=== PATIENT | female | born 1960 | race Caucasian/White ===

== ENCOUNTER 2025-03-12 12:26 | Outpatient (AMB) | payer MEDICARE, SELFPAY ==
--- NOTE | 2025-03-12 12:52 | A.OFFVIS_ITS ---
Intake Visit Reasons: Right knee pain and giving way Intake Note: Jackeline is a 64 year old female who presents with complaints of progressively worsening right knee pain and giving way. The patient describes her pain as sharp in nature. Most of the pain is along the medial aspect of her knee. Her symptoms have gotten worse over the last 5 years. She has failed the last few months of conservative treatment which has included physical therapy, cortisone injection therapy, Tylenol, anti-inflammatory medicines and oxycodone. She states that her right knee will give out several times per day. She has fallen because of the instability. Allergies codeine [CODEINE] Allergy (Severe, Unverified 03/12/25 13:01) ITCHING hydromorphone [HYDROMORPHONE] Allergy (Severe, Unverified 03/12/25 13:01) ITCHING hydrocodone [From VICODIN] Allergy (Mild, Unverified 03/12/25 13:01) ITCHING acetaminophen [Vicodin] Allergy (Unknown, Verified 03/12/25 13:01) Anaphylaxis latex [LATEX] Allergy (Unknown, Unverified 03/12/25 13:01) SWELLING, RASH morphine [MORPHINE] Allergy (Unknown, Unverified 03/12/25 13:01) SWELLING Codeine Phosphate Allergy (Unknown, Uncoded 03/12/25 13:01) hives Latex Gloves Allergy (Unknown, Uncoded 03/12/25 13:01) Blister Medication List - Last Reconciled 03/13/25 by Pako Moreno MD atorvastatin 10 mg PO BEDTIME gabapentin 100 mg PO BEDTIME insulin asp prt-insulin aspart 100 unit/mL (70-30) (Novolog Mix 70-30FlexPen U- 100) 5 units subcut BID levothyroxine 13 mcg PO DAILY lorazepam 1 mg PO BEDTIME PRN oxycodone 5 mg PO Q8H PRN quetiapine (Seroquel) 25 mg PO BEDTIME Physical Exam Const Other: Well-nourished well-developed very friendly female awake alert and oriented x3 in no acute distress Extrem Other: Bilateral lower extremity examination shows good capillary refill, no skin lesions noted, normal sensation light touch Right knee examination shows a minimal effusion, palpable crepitus with range of motion, pain with range of motion, positive Catrachita's test, no instability Results Reviewed Results Reviewed: Standing full weight-bearing x-rays of the patient's right knee show mild diffuse joint space narrowing, no acute bony abnormalities MRI of the patient's right knee shows mild diffuse degenerative changes as well as a tear of the medial meniscus Assessment & Plan Assessment & Plan (1) Tear of medial meniscus of right knee: Code(s): S83.241A - Other tear of medial meniscus, current injury, right knee, initial encounter Category: Medical Plan Ms. Quiros presents with progressively worsening right knee pain and mechanical symptoms due to a medial meniscus tear. I had a lengthy discussion with the patient regarding the treatment options. At this point she has failed continued non operative treatments. The risks and benefits of right knee arthroscopic surgery were discussed at length with the patient. The patient wishes to proceed with surgery. She does understand that she may not get 100% relief of her symptoms depending on the severity of her degenerative changes. She will follow-up as instructed. Feel free to call me at any time should questions regarding her orthopedic management arise. Thank you very much for asking me to see this very friendly patient. I spent 20 minutes in reviewing the patient's records and imaging studies, seeing the patient and documenting in the medical record. Coding Level of Care Code New Pt Level 3 (25637) Complex EM visit Add On G2211 Diagnoses Tear of medial meniscus of right knee S83.241A
--- OUTSIDE RECORDS SUMMARY | 2025-03-12 13:51 | XMS_ITS | Clinical Summary ---
Author Organization [facility] [address] [facility] Address [address] [place] [address] Phone Care Team Providers Care Recreational Aide Name Role Phone Simon Dougherty MD Primary Care Provider [phone] Allergies Active Allergy Reactions Criticality Noted Date Comments Acetaminophen-Codeine 06/30/2012 Fentanyl Nausea And Vomiting 01/09/2019 Hydrocodone-Acetamino phen 08/30/2014 Other Reaction(s): Rash/Dermatitis Latex 09/26/2017 No reaction documented. Morphine Swelling,Wheezing 09/26/2017 Medications multivit-min/ir on/FA/vit K/lut (CENTRUM SILVER WOMEN ORAL) Take by mouth daily. Active bisacodyL (Dulcolax, bisacodyl,) 5 mg EC tablet Take 2 tabs at 6pm as directed. 05/13/2022 Active buPROPion SR (WELLBUTRIN SR) 150 mg 12 hr tablet Take 1 Tab by mouth daily. 06/08/2020 Active baclofen (LIORESAL) 10 mg tablet Take 10 mg by mouth 3 times daily. Active atorvastatin (LIPITOR) 20 mg tablet Take 20 mg by mouth daily. Active aspirin 81 mg EC tablet Take 81 mg by mouth daily. Active albuterol HFA (PROAIR HFA ; PROVENTIL HFA ; VENTOLIN HFA) 90 mcg/actuation inhaler Inhale 2 Puffs into the lungs every 4 hours as needed for Cough or Wheezing. 01/12/2019 Active fluticasone-rolando meterol (ADVAIR DISKUS) 250-50 mcg/dose diskus inhaler Inhale 1 Puff into the lungs 2 times daily. 02/05/2019 Active gabapentin (NEURONTIN) 600 mg tablet Take 600 mg by mouth 2 times daily. Active lactulose (CHRONULAC) solution Take 30 mL by mouth 2 times daily for 30 days. 05/13/2022 Active levothyroxine (SYNTHROID, LEVOTHROID) 50 mcg tablet Take 1 Tab by mouth daily. 12/18/2018 Active linaCLOtide (Linzess) 72 mcg capsule Take 1 Capsule by mouth daily. 05/11/2022 Active pantoprazole (PROTONIX) 40 mg EC tablet Take 1 Tablet by mouth daily for 180 days. 05/11/2022 Active sertraline (ZOLOFT) 100 mg tablet Take 1 Tab by mouth daily. 10/24/2018 Active Active Problems Problem Noted Date Diagnosed Date Carpal tunnel syndrome 01/09/2019 Overview (11/16/2024): S/p surgery Hypothyroidism 08/22/2018 AC (acromioclavicular) joint arthritis 8 Overview (11/16/2024): With calcific tendinitis of right shoulder. Follows with Dr. Moreno. Last X ray from 05/2018 Complete tear of right rotator cuff 06/08/2018 Labral tear of shoulder, right, initial encounte r 06/08/2018 Right shoulder injury, initial encounter 018 Anxiety and depression 09/26/2017 Overview (11/16/2024): Follows with Soheila Babb in [place] therapist. Chronic pain syndrome 09/26/2017 Overview (11/16/2024): Last surgery 11/2016Cervical fusion COPD (chronic obstructive pu lmonary disease) ([facility] V24, [facility] V28) 09/26/2017 Obesity (BMI 30-39.9) 09/26/2017 Type 2 diabetes mellitus wit h peripheral neuropathy ([facility] V24, [facility] V28) 09/26/2017 Overview (11/16/2024): S/p carpal tunnel release Asthma 11/13/2015 Colon polyp 05/26/2015 Diverticulosis 05/16/2015 Gastritis 05/16/2015 Internal hemorrhoids 05/16/2015 Hyperlipidemia 08/30/2014 Bipolar 1 disorder ([facility] V24, [facility] V28) Fatty liver 08/08/2013 Vitamin D deficiency 04/05/2013 GERD (gastroesophageal reflux disease) 3 Urge and stress incontinence 03/02/2013 Obstructive sleep apnea 02/21/2013 Ulcer of esophagus without bleeding 02/02/2013 Nephrolithiasis 12/18/2012 Restless legs syndrome 11/22/2012 Encounters Date Type Department Care Team Description 02/18/2025 12:07 AM EDT - 02/18/2025 2:24 AM EDT Emergency [facility] Emergency [address] [place] [address] Patric Mukherjee MD Chest pain, unspecified type (Primary Dx) Discharge Disposition: Home or Self Care from Last 3 Months Surgical History Surgery Date Site/Laterality Comments NECK SURGERY PROCEDURE:NECK SURGERY HAND SURGERY PROCEDURE:HAND SURGERY SHOULDER SURGERY PROCEDURE:SHOULDER SURGERY BACK SURGERY PROCEDURE:BACK SURGERY Medical History Medical History Date Comments COPD (chronic obstructive pu lmonary disease) ([facility] V24, [facility] V28) DX:COPD (chronic o bstructive pulmonary disease) ([facility]) Diabetes mellitus ([facility] V 24, [facility] V28) DX:Diabetes mellitus (HCC) Family History Medical History Relation Name Comments Clotting disorder Father Cancer Mother Relation Name Status Comments Father Mother Social History Tobacco Use Types Packs/Day Years Used Date Smoking Tobacco: Every Day Cigarettes Smokeless Tobacco: Never Alcohol Use Standard Drinks/Week Comments Not Currently 0 (1 standard drink = 0.6 oz pur e alcohol) Comments Unknown Sex and Gender Information Value Date Recorded Sex Assigned at Not on file Legal Sex Female 6:26 PM EST Gender Identity Not on file Sexual Orientation Not on file Obstetrics History Last Filed Vital Signs Vital Sign Reading Time Taken Comments Blood Pressure 121/81 02/18/2025 2:03 AM EDT Pulse 65 02/18/2025 2:03 AM EDT Temperature 36.7 ??C (98.1 ??F) 02/18/2025 12:14 AM E DT Respiratory Rate 20 02/18/2025 2:03 AM EDT Oxygen Saturation 96% 02/18/2025 2:03 AM EDT Inhaled Oxygen Concentration - - Weight 99.8 kg (220 lb) 02/18/2025 12:14 AM EDT Height 175.3 cm (5' 9 ) 02/18/2025 12:14 AM EDT Body Mass Index 32.49 02/18/2025 12:14 AM EDT Plan of Treatment Health Maintenance Due Date Last Done Comments Breast Cancer Screening 1959 Diabetes: Annual Foot Exam 1969 Diabetes: Annual Retina Eye Exam 1969 DTaP,Tdap,and Td Vaccines (1 - Tdap) 1978 Pneumococcal Vaccine: 50+ Years (1 of 2 - PCV) 1978 Pneumococcal Vaccine: Pediatrics (0 to 5 Years) and At-Risk Patients (6 to 64 Years) (1 of 2 - PCV) 1978 Cervical Cancer Screening: Pap Smear 1980 Zoster Vaccines (1 of 2) 2009 RSV Immunization Adult Patients (1 - Risk 60-74 years 1-dose series) 2019 Depression Screening 09/18/2022 Hepatitis C Screening 09/18/2022 Lung Cancer Screening (Low Dose CT) 09/18/2022 Medicare Annual Wellness Visit 09/18/2022 Osteoporosis Screening (Bone Density Screening) 09/18/2022 Social Influencers of Health Screening 09/18/2022 Diabetes: Annual Urine Albumin-Creatinine Ratio (uACR) 09/22/2022 03/08/2019 Diabetes: Blood Sugar Control Test (HGBA1C) 09/22/2022 06/20/2019 Colorectal Cancer Screening: Colonoscopy 03/29/2024 09/28/2023, 06/01/2022 Falls Risk Assessment 2024 COVID-19 Vaccine ( season) 2024 Cholesterol Screening (Lipid Panel) 06/20/2024 06/20/2019 Influenza Vaccine (Season Ended) 2025 09/17/2022, 07/09/2019 Diabetes: Annual GFR (Glomerular Filtration Rate) 02/18/2026 02/18/2025, 04/12/2024, 04/12/2024, Additional history exists HIB Vaccines Aged Out No longer eligi ble based on patient's age to complete this topic HPV Vaccines Aged Out No longer eligi ble based on patient's age to complete this topic Hepatitis A Vaccines Aged Out No long er eligible based on patient's age to complete this topic Hepatitis B Vaccines Aged Out No long er eligible based on patient's age to complete this topic IPV Vaccines Aged Out No longer eligi ble based on patient's age to complete this topic MMR Vaccines Aged Out No longer eligi ble based on patient's age to complete this topic Meningococcal ACWY Vaccine Aged Out N o longer eligible based on patient's age to complete this topic Meningococcal B Vaccine Aged Out No l onger eligible based on patient's age to complete this topic RSV Immunization Patients Under 20 months Aged Out No longer eligible based on patient's age to complete this topic Varicella Vaccines Aged Out No longer eligible based on patient's age to complete this topic Procedures Procedure Name Priority Date/Time Associated Diagnosis Comments RHYTHM ECG, REPORT Routine 02/18/2025 1: 21 AM EDT TROPONIN I HIGH SENSITIVITY STAT 02/18/2025 1:21 AM EDT ECG 12-LEAD STAT 02/18/2025 1:15 AM EDT XR CHEST 1 VIEW STAT 02/18/2025 12:29 AM EDT RHYTHM ECG, REPORT Routine 02/18/2025 12 :19 AM EDT CBC WITH AUTO DIFFERENTIAL STAT 02/18/2025 12:19 AM EDT CBC AND DIFFERENTIAL STAT 02/18/2025 12:19 AM EDT D-DIMER STAT 02/18/2025 12:19 AM EDT TROPONIN I HIGH SENSITIVITY STAT 02/18/2025 12:19 AM EDT COMPREHENSIVE METABOLIC PANEL STAT 02/18/2025 12:19 AM EDT ECG 12-LEAD STAT 02/18/2025 12:09 AM EDT EXTERNAL COLONOSCOPY REPORT 09/28/2023 HEMOGLOBIN A1C Routine 06/20/2019 LIPID PANEL Routine 06/20/2019 URINE ALBUMIN CREATININE RATIO Routine 03/08/2019 from Last 3 Months or Most Recently Relevant to Health Maintenance Results * RHYTHM ECG, REPORT (02/18/2025 1:21 AM EDT) Only the most recent of2 resultswithin the time period is included. Patric Hoang MD - 02/18/2025 1:21 AM EDT Patric Mukherjee MD ? 02/18/2025 ??2:28 AM ECG Rhythm Interpretation and Report Date/Time: 02/18/2025 1:21 AM Performed by: Patric Mukherjee MD Authorized by: Patric Mukherjee MD ?? ECG interpreted by ED Physician in the absence of a electric switch repairer: yes ?? Previous ECG: ??Previous ECG: ??Compared to current ??Similarity: ??No change Interpretation: ??Interpretation: normal ?Details: ??NSR with a rate of 91 bpm. Normal AK, QRS, QTc, and axis. No acute ischemic changes. us Patric Mukherjee MD ECG ORDERABLES Final Result * Troponin I high sensitivity (02/18/2025 1:21 AM EDT) Only the most recent of2 resultswithin the time period is included. [facility] High Sensitivity Troponin I 2 0 - 14 ng/L LAB CHEMISTRY METHOD 02/18/2025 1:54 AM EDT [facility] Blood Venous blood specimen / Unknown Venipuncture / Unknown 02/18/2025 1:21 AM EDT 02/18/2025 1:23 AM EDT [facility] LAB - 02/18/2025 1:54 AM EDT HSTnI results stratify to HIGH RISK category if any value >100 ng/L or delta at 1 hour is greater than or equal to 15 ng/L (male and female). Note: Delta values are not applicable if symptoms began more than 12 hours pre-arrival. Risk stratification should include the calculation of the HEART score. Testing performed using [employer] Access AccuTnI+3 Assay. Patric Mukherjee MD LAB BLOOD ORDERABLES Final Res ult Performing Organization Address [facility] Co de Phone Number [facility] ([facility]) [facility] [address] [place] [address], [place] [phone] * 12-Lead ECG (02/18/2025 1:15 AM EDT) Only the most recent of2 resultswithin the time period is included. Ventricular Rate ECG 66 BPM GEMUSE Atrial Rate 66 BPM GEMUSE P-R Interval 170 ms GEMUSE QRS Duration 114 ms GEMUSE Q-T Interval 418 ms GEMUSE QTc 438 ms GEMUSE P Wave [place] 13 degrees GEMUSE R [place] -3 degrees GEMUSE T [place] -7 degrees GEMUSE ECG Interpretation Normal sinus rhythm Incomplete right bundle branch block Nonspecific T wave abnormality Abnormal ECG When compared with ECG of 18-FEB-2025 00:09, (Unconfirmed) No significant change was found Confirmed by Luis F Ayon ([id number]) on 02/18/2025 2:02:53 PM GEMUSE 02/18/2025 1:15 AM EDT 02/18/2025 2:02 PM EDT Patric Mukherjee MD ECG ORDERABLES Final Result Performing Organization Address [facility] de Phone Number GEMUSE * XR Chest 1 View (02/18/2025 12:29 AM EDT) Anatomical Region Laterality Modality Body Radiographic Yolande ging 02/18/2025 12:4 5 AM EDT Impressions 02/18/2025 12:47 AM EDT FINDINGS/IMPRESSION: Thoracic inlet is excluded. Lungs are clear. Heart is normal in size. Report reviewed and signed by : Dr. Chacho Gunderson on 02/18/2025 12:47 AM. Workstation Name - [id number] -------- FINAL REPORT -------- Dictated By: Chacho Gunderson Dictated Date: 02/18/2025 00:45 ET Assigned Physician: Chcaho Gunderson Reviewed and Electronically Signed By: Chacho Gunderson Signed Date: 02/18/2025 00:47 ET Workstation ID: [id number] Transcribed By: Self Edit Transcribed Date: 02/18/2025 00:45 ET Narrative 02/18/2025 12:47 AM EDT XR CHEST 1 VIEW HISTORY:64 years Female ??chest pain COMPARISON:None Procedure Note Chacho Gunderson MD - 02/18/2025 XR CHEST 1 VIEW HISTORY:64 years Female chest pain COMPARISON:None IMPRESSION: FINDINGS/IMPRESSION: Thoracic inlet is excluded. Lungs are clear. Heart is normal in size. Report reviewed and signed by : Dr. Chacho Gunderson on 02/18/2025 12:47 AM.Workstation Name - [id number] -------- FINAL REPORT -------- Dictated By: Chacho Gunderson Dictated Date: 02/18/2025 00:45 ET Assigned Physician: Chacho Gunderson Reviewed and Electronically Signed By: Chacho Gunderson Signed Date: 02/18/2025 00:47 ET Workstation ID: [id number] Transcribed By: Self Edit Transcribed Date: 02/18/2025 00:45 ET us Patric Mukherjee MD IMG XR PROCEDURES Final Result * (ABNORMAL) CBC auto differential (02/18/2025 12:19 AM EDT) WBC 8.8 4.0 - 10.5 K/mcL LAB HEMETOLOGY METHOD 02/18/2025 12:25 AM EDT [facility] RBC 4.61 4.20 - 5.40 M/mcL LAB HEMETOLOGY METHOD 02/18/2025 12:25 AM EDT [facility] Hemoglobin 14.2 12.5 - 16.0 g/dL LAB HEMETOLOGY METHOD 02/18/2025 12:25 AM EDT [facility] Hematocrit 42.2 37.0 - 47.0 % LAB HEMETOLOGY METHOD 02/18/2025 12:25 AM [facility] MCV 91.5 78.0 - 100.0 FL LAB HEMETOLOGY METHOD 02/18/2025 12:25 AM [facility] MCH 30.8 25.0 - 33.0 pcg LAB HEMETOLOGY METHOD 02/18/2025 12:25 AM [facility] MCHC 33.6 32.0 - 36.0 g/dL LAB HEMETOLOGY METHOD 02/18/2025 12:25 AM [facility] RDW 11.7(L) 12.1 - 16.2 % LAB HEMETOLOGY METHOD 02/18/2025 12:25 AM [facility] Platelets 197 150 - 450 K/mcL LAB HEMETOLOGY METHOD 02/18/2025 12:25 AM [facility] MPV 10.0 7.4 - 11.4 FL LAB HEMETOLOGY METHOD 02/18/2025 12:25 AM [facility] Neutrophils Relative 48.5 44.0 - 74.0 % LAB HEMETOLOGY METHOD 02/18/2025 12:25 AM [facility] Lymphocytes Relative 44.1 20.0 - 48.0 % LAB HEMETOLOGY METHOD 02/18/2025 12:25 AM [facility] Monocytes Relative 7.1 2.0 - 12.0 % LAB HEMETOLOGY METHOD 02/18/2025 12:25 AM [facility] Eosinophils Relative 0.0 0.0 - 6.0 % LAB HEMETOLOGY METHOD 02/18/2025 12:25 AM [facility] Basophils Relative 0.1 0.0 - 2.0 % LAB HEMETOLOGY METHOD 02/18/2025 12:25 AM EDT [facility] Neutrophils Absolute 4.26 1.80 - 7.80 K/[facility] LAB HEMETOLOGY METHOD 02/18/2025 12:25 AM EDT [facility] Lymphocytes Absolute 3.87(H) 1.00 - 3.20 K/mcL LAB HEMETOLOGY METHOD 02/18/2025 12:25 AM EDT [facility] Monocytes Absolute 0.62 0.00 - 0.80 K/[facility] LAB HEMETOLOGY METHOD 02/18/2025 12:25 AM EDT [facility] Eosinophils Absolute <0.03 0.00 - 0.50 K/mcL LAB HEMETOLOGY METHOD 02/18/2025 12:25 AM EDT [facility] Basophils Absolute <0.03 0.00 - 0.20 K/mcL LAB HEMETOLOGY METHOD 02/18/2025 12:25 AM EDT [facility] Blood Venous blood specimen / Unknown Venipuncture / Unknown 02/18/2025 12:19 AM EDT 02/18/2025 12:23 AM EDT us Patric Mukherjee MD LAB BLOOD ORDERABLES Final Res ult [facility] [address] [place] [address], * D-Dimer (Quantitative) (02/18/2025 12:19 AM EDT) D-Dimer, Quant (D-DU) 186 <231 ng/mL DDU LAB COAGULATION METHOD 02/18/2025 12:35 AM EDT [facility] Blood Venous blood specimen / Unknown Venipuncture / Unknown 02/18/2025 12:19 AM EDT 02/18/2025 12:23 AM EDT Narrative [facility] - 02/18/2025 12:35 AM EDT This assay has been approved by the Food and Drug Administration (FDA) for use in excluding low and moderate risk patients suspected of venous thromboembolism, including deep vein thrombosis (DVT) and pulmonary embolism (PE) when used in conjunction with a clinical Pre test Probability model such as Wells, et al. ??The D Dimer result should not be used alone to rule in DVT and or PE. us Patric Mukherjee MD LAB BLOOD ORDERABLES Final Res ult [facility] [address] [place] [address], [place] [phone] * (ABNORMAL) Comprehensive Metabolic Panel (CMP) (02/18/2025 12:19 AM EDT) Sodium 139 135 - 145 mmol/L LAB CHEMISTRY METHOD 02/18/2025 12:47 AM [facility] Potassium 3.9 3.5 - 5.1 mmol/L LAB CHEMISTRY METHOD 02/18/2025 12:47 AM [facility] Chloride 102 98 - 107 mmol/L LAB CHEMISTRY METHOD 02/18/2025 12:47 AM [facility] CO2 31 24 - 32 mmol/L LAB CHEMISTRY METHOD 02/18/2025 12:47 AM [facility] Anion Gap 6 5 - 14 LAB CHEMISTRY METHOD 02/18/2025 12:47 AM [facility] Glucose 126 70 - 199 mg/dL LAB CHEMISTRY METHOD 02/18/2025 12:47 AM [facility] BUN 14 7 - 17 mg/dL LAB CHEMISTRY METHOD 02/18/2025 12:47 AM [facility] Creatinine 0.65 0.50 - 1.00 mg/dL LAB CHEMISTRY METHOD 02/18/2025 12:47 AM [facility] eGFR 98 >=60 mL/min/1. 73m2 LAB CHEMISTRY METHOD 02/18/2025 12:47 AM [facility] Comment:Calculation based on the Chronic Kidney Disease Epidemiology Collaboration (CKD-EPI) equation refit without adjustment for race. BUN/Creatinine Ratio 21.5(H) 12.0 - 20.0 LAB CHEMISTRY METHOD 02/18/2025 12:47 AM [facility] Calcium 9.5 8.4 - 10.2 mg/dL LAB CHEMISTRY METHOD 02/18/2025 12:47 AM [facility] AST (SGOT) 27 5 - 40 unit/L LAB CHEMISTRY METHOD 02/18/2025 12:47 AM [facility] ALT (SGPT) 27 7 - 52 unit/L LAB CHEMISTRY METHOD 02/18/2025 12:47 AM [facility] Alkaline Phosphatase 93 34 - 104 unit/L LAB CHEMISTRY METHOD 02/18/2025 12:47 AM [facility] Total Protein 7.0 6.4 - 8.5 g/dL LAB CHEMISTRY METHOD 02/18/2025 12:47 AM [facility] Albumin 4.2 3.5 - 5.0 g/dL LAB CHEMISTRY METHOD 02/18/2025 12:47 AM [facility] Total Bilirubin 1.3(H) 0.3 - 1.0 mg/dL LAB CHEMISTRY METHOD 02/18/2025 12:47 AM [facility] Blood Venous blood specimen / Unknown Venipuncture / Unknown 02/18/2025 12:19 AM EDT 02/18/2025 12:23 AM EDT us Patric Mukherjee MD LAB BLOOD ORDERABLES Final Res ult [facility] ([facility]) [facility] [address] [place] [address], [place] [phone] * External Colonoscopy Report (09/28/2023) Anatomical Region Laterality Modality Endoscopy Provider Deposit Onbase GI~PROCEDURE ORDERABLES Final Result * (ABNORMAL) Hemoglobin A1c (06/20/2019) Hemoglobin A1C 6.6(A) <=6.5 % Blood Venous blood specimen / Unknown Historical Provider LAB BLOOD ORDERABLES Bridgette l Result * (ABNORMAL) Lipid panel (06/20/2019) LDL/HDL Ratio 6(A) 0 - 4 Triglycerides 331(A) 0 - 150 mg/dL Cholesterol 218(A) 0 - 200 mg/dL HDL 34(A) >=40 mg/dL LDL Cholesterol 118(A) 0 - 100 mg/dL Blood Venous blood specimen / Unknown Historical Provider LAB BLOOD ORDERABLES Bridgette l Result * HM Urine Albumin Creatinine Ratio (03/08/2019) HM Urine Albumin Creatinine Ratio abstracted Historical Provider HEALTH MAINTENANCE Final Result from Last 3 Months or Most Recently Relevant to Health Maintenance Insurance [employer] [place] MEDICARE ADVANTAGE Care Teams Recreational Aide Relationship Specialty Start Date End Date Simon Dougherty MD [address] [place] [id number] PCP - General 08/26/23
== END 2025-03-12 13:18 | disposition home or self-care (01) ==
LOC: HO.HOS 12:27
PROVIDERS: Visit Provider Orthopaedic Surgery
DX: S83.241A Other tear of medial meniscus, current injury, right knee, initial encounter (principal)
CPT/HCPCS: 99204; G2211

== ENCOUNTER → 2025-03-12 12:26 | Outpatient (BNVA) | payer MEDICARE, SELFPAY | PROVIDERS: Visit Provider Orthopaedic Surgery | DX: S83.241D Other tear of medial meniscus, current injury, right knee, subsequent encounter (principal) | CPT/HCPCS: 99202 ==

== ENCOUNTER 2025-04-15 08:09 | Day surgery (SDC) | payer MEDICARE, SELFPAY ==
--- OUTSIDE RECORDS SUMMARY | 2025-03-15 13:09 | XMS_ITS | Clinical Summary ---
Author Organization [facility] [address] [facility] Address [address] [place] [address] Phone Care Team Providers Care Electrochemist Name Role Phone Simon Dougherty MD Primary Care Provider [phone] Allergies Active Allergy Reactions Criticality Noted Date [...] Overview (11/16/2024): Follows with Soheila Babb in [place] therapist. Chronic pain syndrome 09/26/2017 Overview (11/16/2024): Last surgery 11/2016Cervical fusion COPD (chronic obstructive pu lmonary disease) ([facility] V24, [facility] V28) 09/26/2017 Obesity (BMI 30-39.9) 09/26/2017 Type 2 diabetes mellitus wit h peripheral neuropathy ([facility] V24, [facility] V28) 09/26/2017 Overview (11/16/2024): S/p carpal tunnel release Asthma 11/13/2015 Colon polyp 05/26/2015 Diverticulosis 05/16/2015 Gastritis 05/16/2015 Internal hemorrhoids 05/16/2015 Hyperlipidemia 08/30/2014 Bipolar 1 disorder ([facility] V24, [facility] V28) Fatty liver 08/08/2013 Vitamin D deficiency 04/05/2013 GERD (gastroesophageal reflux disease) 3 Urge and stress incontinence 03/02/2013 Obstructive sleep apnea 02/21/2013 Ulcer of esophagus without bleeding 02/02/2013 Nephrolithiasis 12/18/2012 Restless legs syndrome 11/22/2012 Encounters Date Type Department Care Team Description 02/18/2025 12:07 AM EDT - 02/18/2025 2:24 AM EDT Emergency [facility] Emergency [address] [place] [address] Patric Mukherjee MD Chest pain, unspecified type (Primary Dx) Discharge Disposition: Home or Self Care from Last 3 Months Surgical History Surgery Date Site/Laterality Comments NECK SURGERY PROCEDURE:NECK SURGERY HAND SURGERY PROCEDURE:HAND SURGERY SHOULDER SURGERY PROCEDURE:SHOULDER SURGERY BACK SURGERY PROCEDURE:BACK SURGERY Medical History Medical History Date Comments COPD (chronic obstructive pu lmonary disease) ([facility] V24, [facility] V28) DX:COPD (chronic o bstructive pulmonary disease) ([facility]) Diabetes mellitus ([facility] V 24, [facility] V28) DX:Diabetes mellitus (HCC) Family History Medical [...] ED Physician in the absence of a technician helper instrument: yes ?? Previous ECG: ??Previous ECG: ??Compared to current ??Similarity: ??No change Interpretation: ??Interpretation: normal ?Details: ??NSR with a rate of 91 bpm. Normal IA, QRS, QTc, and axis. No acute ischemic changes. us Patric Mukherjee MD ECG ORDERABLES Final Result * Troponin I high sensitivity (02/18/2025 1:21 AM EDT) Only the most recent of2 resultswithin the time period is included. [facility] High Sensitivity Troponin I 2 0 - 14 ng/L LAB CHEMISTRY METHOD 02/18/2025 1:54 AM EDT [facility] Blood Venous blood specimen / Unknown Venipuncture / Unknown 02/18/2025 1:21 AM EDT 02/18/2025 1:23 AM EDT [facility] - 02/18/2025 1:54 AM EDT HSTnI results stratify to HIGH RISK category if any value >100 ng/L or delta at 1 hour is greater than or equal to 15 ng/L (male and female). Note: Delta values are not applicable if symptoms began more than 12 hours pre-arrival. Risk stratification should include the calculation of the HEART score. Testing performed using [employer] AccuTnI+3 Assay. Patric Mukherjee MD LAB BLOOD ORDERABLES Final Res ult Performing Organization Address [facility] Co de Phone Number [facility] ([facility]) [facility] [address] [place] [address], [place] [phone] * 12-Lead ECG (02/18/2025 1:15 AM EDT) Only the most recent of2 resultswithin the time period is included. Ventricular Rate ECG 66 BPM GEMUSE Atrial Rate 66 BPM GEMUSE P-R Interval 170 ms GEMUSE QRS Duration 114 ms GEMUSE Q-T Interval 418 ms GEMUSE QTc 438 ms GEMUSE P Wave [place] 13 degrees GEMUSE R [place] -3 degrees GEMUSE T [place] -7 degrees GEMUSE ECG Interpretation Normal sinus rhythm Incomplete right bundle branch block Nonspecific T wave abnormality Abnormal ECG When compared with ECG of 18-FEB-2025 00:09, (Unconfirmed) No significant change was found Confirmed by Luis F Ayon ([id number]) on 02/18/2025 2:02:53 PM GEMUSE 02/18/2025 1:15 AM EDT 02/18/2025 2:02 PM EDT Patric Mukherjee MD ECG ORDERABLES Final Result Performing Organization Address [facility] de Phone Number GEMUSE * XR Chest 1 View (02/18/2025 12:29 AM EDT) Anatomical Region Laterality Modality Body Radiographic Yolande ging 02/18/2025 12:4 5 AM EDT Impressions 02/18/2025 12:47 AM EDT FINDINGS/IMPRESSION: Thoracic inlet is excluded. Lungs are clear. Heart is normal in size. Report reviewed and signed by : Dr. Chacho Gunderson on 02/18/2025 12:47 AM. Workstation Name - [id number] -------- FINAL REPORT -------- Dictated By: Chacho Gunderson Dictated Date: 02/18/2025 00:45 ET Assigned Physician: Chacho Gunderson Reviewed and Electronically Signed By: Chacho Gunderson Signed Date: 02/18/2025 00:47 ET Workstation ID: [id number] Transcribed By: Self Edit Transcribed Date: 02/18/2025 [...] Gunderson on 02/18/2025 12:47 AM.Workstation Name - [id number] -------- FINAL REPORT -------- Dictated By: Chacho Gunderson Dictated Date: 02/18/2025 00:45 ET Assigned Physician: Chacho Gunderson Reviewed and Electronically Signed By: Chacho Gunderson Signed Date: 02/18/2025 00:47 ET Workstation ID: [id number] Transcribed By: Self Edit Transcribed Date: 02/18/2025 00:45 ET us Patric Mukherjee MD IMG XR PROCEDURES Final Result * (ABNORMAL) CBC auto differential (02/18/2025 12:19 AM EDT) WBC 8.8 4.0 - 10.5 K/mcL LAB HEMETOLOGY METHOD 02/18/2025 12:25 AM EDT [facility] RBC 4.61 4.20 - 5.40 M/mcL LAB HEMETOLOGY METHOD 02/18/2025 12:25 AM EDT [facility] Hemoglobin 14.2 12.5 - 16.0 g/dL LAB HEMETOLOGY METHOD 02/18/2025 12:25 AM EDT [facility] Hematocrit 42.2 37.0 - 47.0 % LAB HEMETOLOGY METHOD 02/18/2025 12:25 AM [facility] MCV 91.5 78.0 - 100.0 FL LAB HEMETOLOGY METHOD 02/18/2025 12:25 AM [facility] MCH 30.8 25.0 - 33.0 pcg LAB HEMETOLOGY METHOD 02/18/2025 12:25 AM [facility] MCHC 33.6 32.0 - 36.0 g/dL LAB HEMETOLOGY METHOD 02/18/2025 12:25 AM [facility] RDW 11.7(L) 12.1 - 16.2 % LAB HEMETOLOGY METHOD 02/18/2025 12:25 AM [facility] Platelets 197 150 - 450 K/mcL LAB HEMETOLOGY METHOD 02/18/2025 12:25 AM [facility] MPV 10.0 7.4 - 11.4 FL LAB HEMETOLOGY METHOD 02/18/2025 12:25 AM [facility] Neutrophils Relative 48.5 44.0 - 74.0 % LAB HEMETOLOGY METHOD 02/18/2025 12:25 AM [facility] Lymphocytes Relative 44.1 20.0 - 48.0 % LAB HEMETOLOGY METHOD 02/18/2025 12:25 AM [facility] Monocytes Relative 7.1 2.0 - 12.0 % LAB HEMETOLOGY METHOD 02/18/2025 12:25 AM [facility] Eosinophils Relative 0.0 0.0 - 6.0 % LAB HEMETOLOGY METHOD 02/18/2025 12:25 AM [facility] Basophils Relative 0.1 0.0 - 2.0 % LAB HEMETOLOGY METHOD 02/18/2025 12:25 AM EDT [facility] Neutrophils Absolute 4.26 1.80 - 7.80 K/[facility] LAB HEMETOLOGY METHOD 02/18/2025 12:25 AM EDT [facility] Lymphocytes Absolute 3.87(H) 1.00 - 3.20 K/mcL LAB HEMETOLOGY METHOD 02/18/2025 12:25 AM EDT [facility] Monocytes Absolute 0.62 0.00 - 0.80 K/[facility] LAB HEMETOLOGY METHOD 02/18/2025 12:25 AM EDT [facility] Eosinophils Absolute <0.03 0.00 - 0.50 K/mcL LAB HEMETOLOGY METHOD 02/18/2025 12:25 AM EDT [facility] Basophils Absolute <0.03 0.00 - 0.20 K/mcL LAB HEMETOLOGY METHOD 02/18/2025 12:25 AM EDT [facility] Blood Venous blood specimen / Unknown Venipuncture / Unknown 02/18/2025 12:19 AM EDT 02/18/2025 12:23 AM EDT us Patric Mukherjee MD LAB BLOOD ORDERABLES Final Res ult [facility] [address] [place] [address], * D-Dimer (Quantitative) (02/18/2025 12:19 AM EDT) D-Dimer, Quant (D-DU) 186 <231 ng/mL DDU LAB COAGULATION METHOD 02/18/2025 12:35 AM EDT [facility] Blood Venous blood specimen / Unknown Venipuncture / Unknown 02/18/2025 12:19 AM EDT 02/18/2025 12:23 AM EDT Narrative [facility] - 02/18/2025 12:35 AM [...] MD LAB BLOOD ORDERABLES Final Res ult [facility] [address] [place] [address], [place] [phone] * (ABNORMAL) Comprehensive Metabolic Panel (CMP) (02/18/2025 12:19 AM EDT) Sodium 139 135 - 145 mmol/L LAB CHEMISTRY METHOD 02/18/2025 12:47 AM [facility] Potassium 3.9 3.5 - 5.1 mmol/L LAB CHEMISTRY METHOD 02/18/2025 12:47 AM [facility] Chloride 102 98 - 107 mmol/L LAB CHEMISTRY METHOD 02/18/2025 12:47 AM [facility] CO2 31 24 - 32 mmol/L LAB CHEMISTRY METHOD 02/18/2025 12:47 AM [facility] Anion Gap 6 5 - 14 LAB CHEMISTRY METHOD 02/18/2025 12:47 AM [facility] Glucose 126 70 - 199 mg/dL LAB CHEMISTRY METHOD 02/18/2025 12:47 AM [facility] BUN 14 7 - 17 mg/dL LAB CHEMISTRY METHOD 02/18/2025 12:47 AM [facility] Creatinine 0.65 0.50 - 1.00 mg/dL LAB CHEMISTRY METHOD 02/18/2025 12:47 AM [facility] eGFR 98 >=60 mL/min/1. 73m2 LAB CHEMISTRY METHOD 02/18/2025 12:47 AM [facility] Comment:Calculation based on the Chronic Kidney Disease Epidemiology Collaboration (CKD-EPI) equation refit without adjustment for race. BUN/Creatinine Ratio 21.5(H) 12.0 - 20.0 LAB CHEMISTRY METHOD 02/18/2025 12:47 AM [facility] Calcium 9.5 8.4 - 10.2 mg/dL LAB CHEMISTRY METHOD 02/18/2025 12:47 AM [facility] AST (SGOT) 27 5 - 40 unit/L LAB CHEMISTRY METHOD 02/18/2025 12:47 AM [facility] ALT (SGPT) 27 7 - 52 unit/L LAB CHEMISTRY METHOD 02/18/2025 12:47 AM [facility] Alkaline Phosphatase 93 34 - 104 unit/L LAB CHEMISTRY METHOD 02/18/2025 12:47 AM [facility] Total Protein 7.0 6.4 - 8.5 g/dL LAB CHEMISTRY METHOD 02/18/2025 12:47 AM [facility] Albumin 4.2 3.5 - 5.0 g/dL LAB CHEMISTRY METHOD 02/18/2025 12:47 AM [facility] Total Bilirubin 1.3(H) 0.3 - 1.0 mg/dL LAB CHEMISTRY METHOD 02/18/2025 12:47 AM [facility] Blood Venous blood specimen / Unknown Venipuncture / Unknown 02/18/2025 12:19 AM EDT 02/18/2025 12:23 AM EDT us Patric Mukherjee MD LAB BLOOD ORDERABLES Final Res ult [facility] ([facility]) [facility] [address] [place] [address], [place] [phone] * External Colonoscopy Report (09/28/2023) Anatomical Region Laterality Modality Endoscopy Provider [place] On[facility] GI~PROCEDURE ORDERABLES Final Result * (ABNORMAL) [...] CROSS - [place] MEDIC[place] Care Teams Electrochemist Relationship Specialty Start Date End Date Simon Dougherty MD [address] [place] [id number] PCP - General 08/26/23
[2025-04-02 13:07] VITALS: BP 124/69; PULSE 90; RESP 20; O2SAT 97; BMI 34.2
[2025-04-15] VITALS (9 sets, daily range): BP systolic 112–134; BP diastolic 58–80; PULSE 56–70; RESP 12–20; TEMP 36.1–36.5; O2SAT 93–97; BMI 34.3
[2025-04-15] MEDS: Lactated Ringers 1,000 ML 100 ML IVCONT (09:19)
--- NOTE | 2025-04-15 10:27 | HO.ANESPROP2 ---
Documented by User: Verónica Ling NP 04/02/25 13:36 HPI - Anesthesia Eval Consult details Narrative: 64yo F for Right Knee Arthroscopy with partial medial meniscectomy, 04/15/25 No recent illness No CP with some walking, gardening. Mild BEAUCHAMP with activity - able to ascend 1 flight of stairs without BEAUCHAMP. DM: FBS ~ 150-160, A1C 7.9% GERD: controlled with ppi COPD: Using albuerol/advair prn 1-2 x per week - educated to use scheduled as rx'd leading up to surgery. Quit smoking 01/2025, congratulated [facility] Active Problems Active Problems: All Active Problems Tear of medial meniscus of right knee (Acute) Past Medical History Medical History (Updated 04/02/25 @ 13:07 by Hoda Collins RN) Arthritis COPD (chronic obstructive pulmonary disease) HTN (hypertension) Tobacco use disorder Pulmonary nodule GERD (gastroesophageal reflux disease) Anxiety Depression Elevated cholesterol Diabetes Hypothyroid Family History Family history of problems with anesthesia: No Surgical History Surgical History (Updated 04/15/25 @ 08:52 by Aliya Franco RN) H/O section Hx of appendectomy History of reverse total replacement of right shoulder joint Hx of cholecystectomy Hx of hand surgery History of back surgery Hx of reduction mammoplasty H/O colonoscopy History of Problems with Anesthesia: No Social History Social History Are you a primary child care education coordinator to a significant other at home: No Do you presently have visiting nurse or other home services: No Comment: advised of trip hazard Patient Tobacco Use Status: Former Tobacco user Tobacco use type: Cigarette Years Smoked: 45 Smoked in Last 30 Days: No Use of substances other than those prescribed or required for medical reasons: Yes Substance Use Type Other:: advised to refrain 3-5 days pre-op Substance Use Frequency: Occasionally Have you been hit, kicked, punched, or otherwise hurt by someone within the past year? If so, by whom?: No Spiritual Healthcare Practices: no Jainism Healthcare Practices: no Cultural Healthcare Practices: no Are you DNR?: No Advance Directives: No (states spouse is HCP) Advance Directives Information Provided: Yes (as above noted) Advance Directives on File: No FDLMP: n/a Poor oral hygiene: No (wears upper denture nereyda, not able to wear lower) Meds Allergies Allergy/AdvReac Type Severity Reaction Status Date / Time codeine (CODEINE) Allergy Severe ITCHING Verified 04/01/25 09:13 hydromorphone (HYDROMORPHONE) Allergy Severe ITCHING Verified 04/01/25 09:13 azithromycin Allergy Intermediate Rash Verified 04/01/25 15:19 latex (LATEX) Allergy Intermediate SWELLING, Verified 04/01/25 09:13 RASH morphine (MORPHINE) Allergy Intermediate SWELLING Verified 04/01/25 09:13 hydrocodone (From VICODIN) Allergy Mild ITCHING Verified 04/01/25 09:13 Home Medications ?Medication ?Instructions ?Recorded ?Confirmed ?Last Taken ?Type atorvastatin 10 mg tablet 20 mg PO DAILY 03/12/25 04/02/25 Unknown History oxycodone 5 mg capsule 5 mg PO QPM 03/12/25 04/02/25 Unknown History quetiapine 25 mg tablet (Seroquel) 50 mg PO TID 03/12/25 04/01/25 Unknown History albuterol sulfate 90 mcg/actuation 2 puff inhalation QID PRN 04/01/25 04/01/25 Unknown History aerosol inhaler Shortness Of Breath Or Wheezing aspirin 81 mg tablet,delayed 81 mg PO DAILY 04/01/25 04/01/25 Unknown History release fluticasone 250 mcg-salmeterol 50 1 inh inhalation BID 04/01/25 04/01/25 04/15/25 05:30 History mcg/dose blistr powdr for inhalation (Advair Diskus) gabapentin 600 mg tablet 600 mg PO TID 04/01/25 04/02/25 04/15/25 05:30 History insulin aspart U-100 100 unit/mL 2 - 7 unit subcut TIDAC 04/01/25 04/02/25 Unknown History subcutaneous solution (Novolog U-100 Insulin aspart) levothyroxine 50 mcg tablet 50 mcg PO QAM 04/01/25 04/01/25 04/15/25 05:30 History lorazepam 0.5 mg tablet 0.5 mg PO TID PRN Anxiety 04/01/25 04/01/25 Unknown History losartan 50 mg tablet 50 mg PO DAILY 04/01/25 04/01/25 Unknown History pantoprazole 40 mg tablet,delayed 40 mg PO BID 04/01/25 04/01/25 04/15/25 05:30 History release docusate sodium 100 mg capsule 100 mg PO DAILY 04/02/25 04/02/25 Unknown History (Colace) multivitamin 1 tab PO QAM 04/02/25 04/02/25 Unknown History Exam Height,Weight and Vital Signs: Height 5 ft 9.5 in Weight 106.594 kg Last Vital Signs Pulse 90 04/02/25 13:07 Resp 20 04/02/25 13:07 BP 124/69 04/02/25 13:07 Pulse Ox 97 04/02/25 13:07 O2 Del Method Room Air 04/02/25 13:07 Pertinent Lab Results Pertinent Lab Results: 01/2025 CBC and BMP from outside facility on chart and OK Airway Denture: Upper and Lower (doesnt wear) Heart: RRR Lungs: CTAB Assessment and Plan Assessment Anesthesia Assessment: Anesthesia Plan Discussed and PAT Visit Final Anesthetic Review Family History of Problems with Anesthesia: No History of Problems with Anesthesia: No Documented by User: Elaine Mcgee DO 04/15/25 10:31 HPI - Anesthesia Eval Consult details Narrative: 64yo F for Right Knee Arthroscopy with partial medial meniscectomy, 04/15/25 No recent illness No CP with some walking, gardening. Mild BEAUCHAMP with activity - able to ascend 1 flight of stairs without BEAUCHAMP. DM: FBS ~ 150-160, A1C 7.9% GERD: controlled with ppi COPD: Using albuerol/advair prn 1-2 x per week - educated to use scheduled as rx'd leading up to surgery. Quit smoking 01/2025, congratulated Patient reports waking up towards the end of her shoulder surgery with the breathing tube still in place and was quite traumatized by that. Reassured patient that we will do our best to not have that event happen again. [facility] Past Medical History Medical History (Updated 04/02/25 @ 13:07 by Hoda Collins RN) Arthritis COPD (chronic obstructive pulmonary disease) HTN (hypertension) Tobacco use disorder Pulmonary nodule GERD (gastroesophageal reflux disease) Anxiety Depression Elevated cholesterol Diabetes Hypothyroid Family History Family history of problems with anesthesia: No Surgical History Surgical History (Updated 04/15/25 @ 08:52 by Aliya Franco RN) H/O section Hx of appendectomy History of reverse total replacement of right shoulder joint Hx of cholecystectomy Hx of hand surgery History of back surgery Hx of reduction mammoplasty H/O colonoscopy History of Problems with Anesthesia: No Social History Social History Are you a primary child care education coordinator to a significant other at home: No Do you presently have visiting nurse or other home services: No Comment: advised of trip hazard Patient Tobacco Use Status: Former Tobacco user Tobacco use type: Cigarette Years Smoked: 45 Smoked in Last 30 Days: No Use of substances other than those prescribed or required for medical reasons: Yes Substance Use Type Other:: advised to refrain 3-5 days pre-op Substance Use Frequency: Occasionally Have you been hit, kicked, punched, or otherwise hurt by someone within the past year? If so, by whom?: No Spiritual Healthcare Practices: no Jainism Healthcare Practices: no Cultural Healthcare Practices: no Are you DNR?: No Advance Directives: No (states spouse is HCP) Advance Directives Information Provided: Yes (as above noted) Advance Directives on File: No FDLMP: n/a Poor oral hygiene: No (wears upper denture nereyda, not able to wear lower) Meds Allergies Allergy/AdvReac Type Severity Reaction Status Date / Time codeine (CODEINE) Allergy Severe ITCHING Verified 04/01/25 09:13 hydromorphone (HYDROMORPHONE) Allergy Severe ITCHING Verified 04/01/25 09:13 azithromycin Allergy Intermediate Rash Verified 04/01/25 15:19 latex (LATEX) Allergy Intermediate SWELLING, Verified 04/01/25 09:13 RASH morphine (MORPHINE) Allergy Intermediate SWELLING Verified 04/01/25 09:13 hydrocodone (From VICODIN) Allergy Mild ITCHING Verified 04/01/25 09:13 Home Medications ?Medication ?Instructions ?Recorded ?Confirmed ?Last Taken ?Type atorvastatin 10 mg tablet 20 mg PO DAILY 03/12/25 04/02/25 Unknown History oxycodone 5 mg capsule 5 mg PO QPM 03/12/25 04/02/25 Unknown History quetiapine 25 mg tablet (Seroquel) 50 mg PO TID 03/12/25 04/01/25 Unknown History albuterol sulfate 90 mcg/actuation 2 puff inhalation QID PRN 04/01/25 04/01/25 Unknown History aerosol inhaler Shortness Of Breath Or Wheezing aspirin 81 mg tablet,delayed 81 mg PO DAILY 04/01/25 04/01/25 Unknown History release fluticasone 250 mcg-salmeterol 50 1 inh inhalation BID 04/01/25 04/01/25 04/15/25 05:30 History mcg/dose blistr powdr for inhalation (Advair Diskus) gabapentin 600 mg tablet 600 mg PO TID 04/01/25 04/02/25 04/15/25 05:30 History insulin aspart U-100 100 unit/mL 2 - 7 unit subcut TIDAC 04/01/25 04/02/25 Unknown History subcutaneous solution (Novolog U-100 Insulin aspart) levothyroxine 50 mcg tablet 50 mcg PO QAM 04/01/25 04/01/25 04/15/25 05:30 History lorazepam 0.5 mg tablet 0.5 mg PO TID PRN Anxiety 04/01/25 04/01/25 Unknown History losartan 50 mg tablet 50 mg PO DAILY 04/01/25 04/01/25 Unknown History pantoprazole 40 mg tablet,delayed 40 mg PO BID 04/01/25 04/01/25 04/15/25 05:30 History release docusate sodium 100 mg capsule 100 mg PO DAILY 04/02/25 04/02/25 Unknown History (Colace) multivitamin 1 tab PO QAM 04/02/25 04/02/25 Unknown History Exam Exam Date and Time: 04/15/25 1025 Height,Weight and Vital Signs: Height 5 ft 9.5 in Weight 106.594 kg Last Vital Signs Pulse 90 04/02/25 13:07 Resp 20 04/02/25 13:07 BP 124/69 04/02/25 13:07 Pulse Ox 97 04/02/25 13:07 O2 Del Method Room Air 04/02/25 13:07 Vital Signs Pulse Rate 90 04/02/25 13:07 Respiratory Rate 20 04/02/25 13:07 Blood Pressure 124/69 04/02/25 13:07 Pulse Oximetry 97 04/02/25 13:07 Oxygen Delivery Method Room Air 04/02/25 13:07 Temperature 97.7 F 07/07/25 09:09 Pulse Rate 67 04/15/25 09:09 Respiratory Rate 20 04/15/25 09:09 Blood Pressure 134/63 04/15/25 09:09 Pulse Oximetry 93 04/15/25 09:09 Oxygen Delivery Method Room Air 04/15/25 09:09 Airway Mallampati Class: II TM Dist: >3cm Neck ROM: Full Denture: Upper Heart: S1S2 Assessment and Plan Assessment Anesthesia Assessment: Anesthesia Plan Discussed and Chart Reviewed Final Anesthetic Review Family History of Problems with Anesthesia: No History of Problems with Anesthesia: No NPO: Yes ASA Class: II Final Preanesthetic Review: No Changes in Pt Med Stat, Meds/Allgs Chart Reviewed, Consent Obtained/Reviewed and Anes Risks/Benef Reviewed Patient Risk: Low Procedure Risk: Low Anesthetic Plan Anesthetic Plan: GA and Agree w/ Assess. and Plan Disposition: Standard PACU
--- NOTE | 2025-04-15 12:03 | P.BOP_ITS ---
Brief Operative Note Date of Service: 04/15/25 Pre-op diagnosis: Right knee medial meniscus tear, right knee degenerative joint disease Post-op diagnosis: same Procedure: Right knee arthroscopic partial medial meniscectomy, right knee arthroscopic chondroplasty of the undersurface of the patella and medial femoral condyle Implants: none Surgeon: Pako Moreno MD Anesthesia: GLMA Was an Merchandise Examiner used for this Procedure?: No Estimated blood loss (mL): 10 Pathology: none sent Condition: stable Disposition: PACU
--- NOTE | 2025-04-15 12:03 | W.PM.OPN ---
Operative Note Operative Note Date of Service: 04/15/25 Narrative: After the patient was identified as Jackeline Quiros and her right knee was initialed by myself they were brought to the operating room where general anesthesia was induced by the anesthesiologist in routine fashion. The patient was given 2 g of IV Ancef for infection prophylaxis. A formal time-out was completed. The patient's right lower extremity was prepped and draped in sterile fashion. Marcaine with epinephrine was injected into the planned incision sites as well as their right knee joint. A # 11 scalpel blade was used to make an anterolateral portal 1 cm proximal to the joint line and 1 cm lateral to the patellar tendon. Blunt trocar technique was used into the suprapatellar pouch with the knee in extension. Diagnostic arthroscopy showed multiple bands of thickened plica which would be excised at the end of the procedure. There were no loose bodies or abnormalities found in either the medial or lateral gutters. There were diffuse grades 2 and 3 degenerative changes of the undersurface of the patella as well as grades 2 and 3 degenerative changes of the trochlear groove. The patient's knee was flexed to 45 degrees and a valgus force was placed upon it. The medial compartment was entered. An anteromedial portal was made 1 cm proximal to the joint line and 1 cm medial to the patellar tendon. Probing of the medial meniscus showed a radial tear of the posterior horn. A partial medial meniscectomy was performed using the arthroscopic shaver. Following the partial meniscectomy the remainder of the meniscus tissue was stable. There were diffuse grades 1 and 2 degenerative changes of the medial femoral condyle as well as diffuse grades 1 and 2 degenerative changes of the medial tibial plateau. The articular surface of the medial femoral condyle was made smooth using the arthroscopic shaver. The articular surface of the medial tibial plateau was already smooth so no chondroplasty was indicated. The patient's knee was then placed into a neutral position. There was no injury to the anterior cruciate ligament. The patient's knee was then placed into the figure of 4 position and the lateral compartment was entered. There were minimal degenerative changes of the lateral femoral condyle and lateral tibial plateau. There was no evidence of lateral meniscus tearing. The patient's knee was once again brought into extension and the suprapatellar pouch was entered. The arthroscopic shaver and the ArthroCare Wand were used to excise the thickened bands of plica. The undersurface of the patella was then made smooth using the arthroscopic shaver. The articular surface of the trochlear groove was already smooth so no chondroplasty was indicated. The knee joint was irrigated and then drained. All arthroscopic instruments were removed. The 2 portals were closed with 3-0 nylon interrupted suture. The knee joint was injected with Marcaine. Dry sterile dressing and Riley bandages were placed over the patient's knee. The patient was awoken and extubated in the operating room. They were transferred to the recovery room in stable condition.
== END 2025-04-15 13:26 | disposition home or self-care (01) ==
PROVIDERS: PCP Internal Medicine; Visit Provider Orthopaedic Surgery
PROC: (CPT 29870; principal; 2025-04-15 10:30)
DX: S83.241A Other tear of medial meniscus, current injury, right knee, initial encounter (principal); M17.11 Unilateral primary osteoarthritis, right knee; M67.51 Plica syndrome, right knee; M25.561 Pain in right knee; M23.51 Chronic instability of knee, right knee; X58.XXXA Exposure to other specified factors, initial encounter; Y93.9 Activity, unspecified; Y92.9 Unspecified place or not applicable; Y99.9 Unspecified external cause status; Z91.81 History of falling; E78.00 Pure hypercholesterolemia, unspecified; J44.9 Chronic obstructive pulmonary disease, unspecified; R91.1 Solitary pulmonary nodule; K21.9 Gastro-esophageal reflux disease without esophagitis; E03.9 Hypothyroidism, unspecified; E11.9 Type 2 diabetes mellitus without complications; M19.90 Unspecified osteoarthritis, unspecified site; Z79.4 Long term (current) use of insulin; Z79.82 Long term (current) use of aspirin; Z79.51 Long term (current) use of inhaled steroids; Z79.899 Other long term (current) drug therapy; Z88.5 Allergy status to narcotic agent; Z91.040 Latex allergy status; Z87.891 Personal history of nicotine dependence; Z88.1 Allergy status to other antibiotic agents
CPT/HCPCS: 29881; J0131; J0165; J0690; J0696; J1100; J1630; J1885; J2003; J2250; J2405; J2704; J2795; J3010

== ENCOUNTER → 2025-04-15 08:09 | Outpatient (BNV) | payer MEDICARE, SELFPAY | PROVIDERS: PCP Internal Medicine; Visit Provider Orthopaedic Surgery | DX: S83.241A Other tear of medial meniscus, current injury, right knee, initial encounter (principal) | CPT/HCPCS: 29881 ==

== ENCOUNTER 2025-04-30 12:40 | Outpatient (AMB) | payer MEDICARE, SELFPAY ==
--- NOTE | 2025-04-30 12:43 | MHC.OFFVIS ---
Intake Visit Reasons: PO-Rt Knee 04/15/25 Intake Note: Jackeline is a 64 year old female who presents today for her first post-operative visit after undergoing a right knee arthroscopy on 04/15/25. Patient states no pain to report at this time, back to her normal activities. She has returned to her exercise class. Allergies codeine (CODEINE) Allergy (Severe, Verified 04/30/25 12:45) ITCHING hydromorphone (HYDROMORPHONE) Allergy (Severe, Verified 04/30/25 12:45) ITCHING azithromycin Allergy (Intermediate, Verified 04/30/25 12:45) Rash latex (LATEX) Allergy (Intermediate, Verified 04/30/25 12:45) SWELLING, RASH morphine (MORPHINE) Allergy (Intermediate, Verified 04/30/25 12:45) SWELLING hydrocodone (From VICODIN) Allergy (Mild, Verified 04/30/25 12:45) ITCHING PFSH Medical History (Updated 04/30/25 @ 12:58 by Pako Moreno MD) Arthritis COPD (chronic obstructive pulmonary disease) HTN (hypertension) Tobacco use disorder Pulmonary nodule GERD (gastroesophageal reflux disease) Anxiety Depression Elevated cholesterol Diabetes Hypothyroid Surgical History (Updated 04/15/25 @ 08:52 by Aliya Franco RN) H/O section Hx of appendectomy History of reverse total replacement of right shoulder joint Hx of cholecystectomy Hx of hand surgery History of back surgery Hx of reduction mammoplasty H/O colonoscopy Social History Are you a primary home day care provider to a significant other at home: No Do you presently have visiting nurse or other home services: No Comment: advised of trip hazard Patient Tobacco Use Status: Former Tobacco user Tobacco use type: Cigarette Years Smoked: 45 Physical Exam Extrem Other: Right knee examination shows that the surgical incisions are healing well, no erythema, minimal discomfort with range of motion, minimal crepitus with range of motion Assessment & Plan Assessment & Plan (1) Right knee pain: Code(s): M25.561 - Pain in right knee Category: Medical Plan Ms. Quiros is doing well after undergoing right knee arthroscopic surgery on 04/15/2025. Her sutures were removed and Steri-Strips placed over her incisions. She will continue to gradually progress to activities as tolerated. She will follow up with me on an as-needed basis should her symptoms not plateau at an unacceptable level over the next few months. Feel free to call me at any time should questions regarding her orthopedic management arise. Coding Level of Care Code Global (09578) Diagnoses Right knee pain M25.561
--- OUTSIDE RECORDS SUMMARY | 2025-04-30 13:42 | XMS_ITS | Data Portability ---
Author Organization 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 She had been seen 2 occasions by Mr. Moreno. She has been seen multiple times by her primary care doctor. Patient reports that she has significant pain in her knee. She feels unstable on her legs. She has had multiple falls. She is fallen down the stairs. She uses a cane to walk long distances. She notes a limp. She is unable to kneel. She uses the arms transition from sit to stand. She reports her pain level ranges from 6-9. The patient apparently had an intra-articular injection which did not provide her benefit. She reports it significantly elevated her blood sugars. She was sent for physical therapy does not did not improve her symptoms. She describes that her right knee is painful anteriorly. She denies any groin pain. Patient takes oxycodone on a daily basis. The patient's hip symptom profile form was reviewed and included in the record. PFMSH and ROS have been reviewed, updated, and is located in the patient s chart. PAST MEDICAL HISTORY: Past medical history is significant for diabetes, ulcers, thyroid disease, anxiety, depression PAST SURGICAL HISTORY: Past surgical history includes lumbar spine fusion and total shoulder MEDICATIONS: List is available for review in the chart . ALLERGIES: Patient reports an allergy to latex and morphine. Does not report an allergy to metal, Iodine, tape, or adhesives. SOCIAL HISTORY: The patient is retired. She smokes 1 pack cigarettes per month. She uses medical marijuana. She is . She has not seen a dentist in years. She is status a support system at home. PHYSICAL EXAMINATION: Please see vitals recorded below Mental status: Alert and lucid. Normal insight, affect, and grooming. OFFICE AUDITOR: Gross motor coordination is intact. No spasticity or clonus noted. Extremities: Calves are soft and non-tender. Skin intact. Palpable pedal pulses equal bilaterally. Peripheral vascular, lymphatic examination, skin, neurological coordination, reflexes, sensation are within normal limits. ORTHOPEDIC EXAMINATION: Negative SLR tests bilaterally. Full ROM of both knees without pain. The patient ambulates with a notable Trendelenburg gait. She has pain with internal/external rotation of her hip. She does have pain with range of motion of her knee. However ironically hip range of motion hurts more than the range of motion. Patient has a positive Stinchfield test. IMAGING: X-rays ordered, obtained, and reviewed today on [employer] PACS: AP pelvis, Marking AP of the Right hip, and Direct Lateral of the Right Hip. Demonstrate end-stage osteoarthritis of the Right hip with bone on bone articulation. Subchondral sclerosis and osteophyte formation are visible. There is mild to moderate dysplasia. Previously obtained X-rays reviewed in the office today on [employer] PACS: Weight bearing AP of Both knees, [place] view of Both Knees, [place] View of Both Knees, and Lateral of the Right knee; demonstrate moderate joint space narrowing of the Right Knee. There is subchondral sclerosis, osteophyte formation. There is varus deformity and there is Moderate patellofemoral involvement. There is not evidence of nvbm-df-vygi articulation. Review of MRI report of the right knee MRI shows myxoid degeneration of the menisci. There is degeneration of the articular cartilage. IMPRESSION: Right knee pain suspected right hip referred pain as well as moderate osteoarthritis of the right knee PLAN: I obtained history from the patient today a and linking this with a brief physical examination it appeared to me that the patient symptoms were more likely related to hip osteoarthritis and they were to knee symptoms. This is especially notable as the patient did not have any clinical benefit from corticosteroid or local anesthetic following a knee injection. Patient was very frustrated by this. I asked her to obtain hip x-rays which were obtained today in the office. Patient was frustrated about the need to obtain x-rays and upon returning to the room most of clearly upset about her situation. I tried to explain to her that while she does have radiographic evidence of moderate osteoarthritis of her knee. I am much more suspicious of hip osteoarthritis. At this point she became very upset with me. I explained to her that based on her current radiographic imaging I be very hesitant to perform total knee arthroplasty for her. I did try and explained to her that I do think she has clinical evidence of hip osteoarthritis which could cause referred pain to the anterior aspect of her knee. She could also better explain all potential falls. Patient is very upset with this. I tried to calm her down and reassure her. Patient feels that the time since symptoms to diagnosis is to long. Patient vehemently states that her symptoms are not related to her hip I did try offer the patient return treatment options. At this point she chose to leave the office. The patient knows I will be happy to meet with them again at any time in order to review any additional questions or concerns that they might have. [employer] speech recognition apprentice electrician software was used to create portions of this document. An attempt at proofreading has been made to minimize errors. Please call for corrections. [email or web address] Not available 12/05/2024 16:29:23 Plan of Treatment Reminders Order Date Submit Date Provider Last Modified By Organization Details Last Modified Time Details Appointments None recorde d. Lab None recorde d. Referral None recorde d. Procedures None recorde d. Surgeries None recorde d. Imaging XR, hip + pelvis, unilate ral, 2 or 3 view - 204, 3 views of right hip. Dr. Rod's protoco l. 025 12/05/19 25 [email or web address] [facility], [address], [place], [address], 5 09:12:27 XR, knee, 4 or more view - rm 201 4V right knee pain 024 09/07/20 24 [email or web address] [facility], [address], [place], [address], 4 12:02:11 Medication Orders None recorde d. Patient TargetsNo targets recorded. Patient InstructionsNo instructions recorded. Reason for Referral None Reported. Results Created Date Observation Date Name Description Value Unit Range Abnormal Flag Note LastModifiedBy Organization Detail LastModifiedTime 09/07/20 24 09/07/2024 XR, knee, 4 or more view http:/ [email or web address] ?Encry pted=s hAaTro YD8dLq bEUv6g %2BXZw aYqtaq 0bqfl% 2Fg9IQ a4ajBk vP9nXo QUaueC m3YtLR FvZlgJ JJ8mAn HZtai3 7j9847 AC0Kqa XiMWaa gKiQtr MwF INTERFACE [facility] [address], [place], [address], 09/07/2024 14:54:32 09/07/20 24 09/07/2024 XR, knee, 4 or more view [email or web address]:/ [email or web address] ?Encry pted=s hAaTro YD8dLq bEUv6g %2BXZw aYqtaq 0bqfl% 2Fg9IQ a4ajBk vP9nXo QUaueC m3YtLR FvZlgJ JJ8mAn HZtai3 7k3685 AC0Kqa XiMWaa gKiQtr MwF INTERFACE [facility] [address], [place], [address], 09/07/2024 14:54:34 12/05/19 25 12/05/2024 XR, hip + pelvi s, unila teral , 2 or 3 view http:/ [email or web address] 20 [email or web address] ?Encry pted=s hAaTro YD8dLq bEUv6g %2BXZw aYqtaq 0bqfl% 2Fg9IQ a4ajBk vP9nXo QUaueC m3YtLR FvZlgJ JJ8mAn HZtai3 3t2952 AC0Kqb XmAVaC nKiQtr MwF INTERFACE [facility] [address], [place], [address], 12/05/2024 14:06:57 12/05/19 25 12/05/2024 XR, hip + pelvi s, unila teral , 2 or 3 view http:/ [email or web address] ?Encry pted=s hAaTro YD8dLq bEUv6g %2BXZw aYqtaq 0bqfl% 2Fg9IQ a4ajBk vP9nXo QUaueC m3YtLR FvZlgJ JJ8mAn HZtai3 2n7930 AC0Kqb XmAVaC nKiQtr MwF INTERFACE [facility] [address] [facility] [address], [place], [address], 12/05/2024 14:06:59 Result Notes Documentation Provider Name and Address Organization Details Recorded Time Xr, Knee, 4 Or More View : [email or web address]? Encrypted=ecFrOdfCE6zMylK Uv6g%7ELFjtXzpfl4nlsf%2Fg 3QVm7maUhjS5fMaJOfdbIx1Mp KUTqCkyCGX1ePjFVwtv56h906 7TA5VbaOqUUotpJcFweMdW Not Available [facility] 09/07/2024 14:54: 33 Xr, Knee, 4 Or More View : [email or web address]? Encrypted=geSlYuwUE4zWgoK Uv6g%5BFPybDccuc6vghr%2Fg 0HNg3keAgkQ3iVsNEkgtPa6Yl RRWgCveXSU3mWoBWytl11y539 3ZP6NclYbAIpobTpHnkWbL Not Available [facility] 09/07/2024 14:54: 35 Xr, Hip + Pelvis, Unilateral, 2 Or 3 View : [email or web address]? Encrypted=nqNyTxuRT4pCvaW Uv6g%1XOQemOwaxp6cqer%2Fg 0KBc4qgOitX0oJgLPhemGr5Uw VWKgZfrEGP3kWjWIttg80m921 7TK4CwoDzZNiObPqRaeNtO Not Available [facility] 12/05/2024 14:06: 58 Xr, Hip + Pelvis, Unilateral, 2 Or 3 View : [email or web address]? Encrypted=zvLqJsbQD5eIunE Uv6g%1OOUgaMvfsk1phfb%2Fg 1STd1hlYjpJ3qXfDBhszXp3Ao HTNqXrkBZO2cWpYOmqq27a537 1IU5NkcPxHIcWdLeWuyMxO Not Available [facility] 12/05/2024 14:07: 00 Problems Name Problem SNOMED Code Status Onset Date Resolution Date Notes Provider Name and Address Organization Details Recorded Time No complaint s 125100283 Active Status: 'I'; Not Available [facility] 4 09:17:03 Trigger finger of left hand 656203126863 62961 Active 2017 Problem Code: M65.332; Problem Code Type: ICD-10; Status: 'A'; Not Available [facility] 4 11:27:29 Pain of right shoulder joint 514331311933 95420 Active 2020 Status: 'A'; Not Available [facility] 4 11:27:29 Osteoarth ritis of right knee joint 725640866968 100 Active 2024 Bennie Rod MD [address], [place], [address] , [place] [facility] 5 17:11:28 Osteoarth ritis of right hip joint 003736312428 107 Active 2024 Bennie Rod MD [address], [place], [address] , [facility] 5 16:22:29 Problem Notes None recorded. Procedures Surgical History Date Name Laterality Status Provider Name and Address Organization Details Recorded Time 09/07/2024 Sports Knee 4&1 completed Alvarado Nicole PA-C [address], [place], [address], [place] [facility] 09/07/2024 16:47:35 Imaging Results None recorded. Procedure Notes None recorded. Medical Equipment None Reported. Allergies Allergen ID Allergen Name Allergen Category Reaction Reaction Severity Criticality Documentation Date Start Date Code Code System Note Provider Name and Address Organization Details Recorded Time 84041 codeine medicatio n Not available Not available Not available 12/12/20232016 2670 RxNorm Aller gyNam e: 'Code ine and Relat ed'; Not Available [facility] 4 13:40:07 92658 morphine sulfate medicatio n Not available Not available Not available 12/12/20232016 46677 RxNorm Not Available [facility] 4 13:40:07 20236 latex environme nt,medica tion Not available Not available Not available 12/12/20232020 15804 91 RxNorm Not Available [facility] 4 13:40:07 Medications Name Sig Start Date Stop Date Status Note LastModified by Organization Details LastModified Time cyclobenzap rine 10 mg tablet TAKE ONE TABLET BY MOUTH ONCE DAILY AT BEDTIME 12/05 completed Not Available Not Available Not Available gabapentin 600 mg tablet TAKE ONE TABLET BY MOUTH THREE TIMES A DAY active Not Available Not Available No t Available doxycycline hyclate 100 mg capsule TAKE ONE CAPSULE BY MOUTH TWICE A DAY 12/05 completed Not Available Not Available Not Available atorvastati n 20 mg tablet TAKE ONE TABLET BY MOUTH EVERY DAY 12/05 completed Not Available Not Available Not Available prednisone 20 mg tablet TAKE 3 TABLETS BY MOUTH EVERY DAY FOR 5 DAYS 12/05 completed Not Available Not Available Not Available lithium carbonate ER 300 mg tablet,exte nded release TAKE THREE TABLETS BY MOUTH AT BEDTIME 12/05 completed Not Available Not Available Not Available lorazepam 0.5 mg tablet TAKE ONE TABLET BY MOUTH THREE TIMES A DAY NEEDED active Not Available Not Available No t Available Humalog U-100 Insulin 100 unit/mL subcutaneou s solution INJECT 2 TO 7 UNITS UNDER THE SKIN THREE TIMES A DAY BEFORE MEALS active Not Available Not Available No t Available levothyroxi ne 50 mcg tablet TAKE ONE TABLET BY MOUTH EVERY DAY IN THE MORNING ON EMPTY STOMACH active Not Available Not Available No t Available cephalexin 500 mg capsule TAKE ONE CAPSULE BY MOUTH TWICE A DAY 12/05 completed Not Available Not Available Not Available pantoprazol e 40 mg tablet,yvonne yed release TAKE ONE TABLET BY MOUTH TWICE A DAY active Not Available Not Available No t Available Novolog U-100 Insulin aspart 100 unit/mL subcutaneou s solution INJECT 2 TO 7 UNITS UNDER THE SKIN THREE TIMES A DAY BEFORE MEALS 12/05 completed Not Available Not Available Not Available dicyclomine 10 mg capsule TAKE 1 CAPSULE BY MOUTH 3 TIMES A DAY NEEDED FOR CRAMPING 12/05 completed Not Available Not Available Not Available oxycodone 5 mg tablet TAKE ONE TABLET BY MOUTH EVERY DAY NEEDED active Not Available Not Available No t Available quetiapine 50 mg tablet TAKE ONE TABLET BY MOUTH THREE TIMES A DAY active Not Available Not Available No t Available oxycodone HCl-oxycodo ne-ASA Take 0.5 - 1 tab nightly as needed for severe pain. 12/05 completed Statu s: 'Curr ent'; Not Available Not Available Not Available Creon 36,000 unit-114,00 0 unit-180,00 0 unit capsule,del ayed release TAKE ONE CAPSULE BY MOUTH THREE TIMES A DAY WITH MEALS active Not Available Not Available No t Available Readi-Cat 2 2 % (w/v) oral suspension TAKE 450 ML BY MOUTH SIX HOURS PRIOR TO TEST TIME THEN DRINK SECOND BOTTLE 1 AND 1/2 HOURS PRIOR TO TEST TIME 12/05 completed Not Available Not Available Not Available FreeStyle Mona 2 Sensor kit CHECK BLOOD SUGAR TWO TIMES A DAY active Not Available Not Available No t Available FreeStyle Mona 2 [place] USE TO CHECK SUGAR active Not Available Not Available No t Available Mounjaro 5 mg/0.5 mL subcutaneou s pen injector INJECT 5 MG UNDER THE SKIN ONCE A WEEK 12/05 completed Not Available Not Available Not Available Mounjaro 2.5 mg/0.5 mL subcutaneou s pen injector INJECT 2.5MG UNDER THE SKIN ONCE A WEEK 12/05 completed Not Available Not Available Not Available Dexcom G7 Sensor device CHECH SUGAR DIRECTED 12/05 completed Not Available Not Available Not Available Vitals Date Recorded Body height Body mass index (BMI) Body weight Provider Name and Address Organization Details Last Updated DateTime 10/30/2024 175.26 cm 33.2 kg/m2 019862.28 g RAFAEL DUMAS [facility] 10/30/2024 15:57:56 Date Recorded Body height Body mass index (BMI) Body weight Provider Name and Address Organization Details Last Updated DateTime 12/05/2024 175.26 cm 34.6 kg/m2 888885.61 g Debbie Shea [facility] 12/05/2024 13:29:27 Date Recorded Body height Body mass index (BMI) Body weight Provider Name and Address Organization Details Last Updated DateTime 09/07/2024 175.26 cm 32.5 kg/m2 32699.32 adrián CARTERRAFAEL ALESIA [facility] 09/07/2024 14:44:11 Social History None recorded. Functional Status None recorded. Mental Status None recorded. Family History Nothing Reported. Medical History No medical history recorded. Gynecological HistoryNo gynecological history recorded. Obstetrics History GPAL:G 0 P 0 0 0 0 Past Encounters Encounter ID Performer Location Encounter Start Date Encounter Closed Date Diagnosis/Indication Diagnosis SNOMED-CT Code Diagnosis ICD10 Code Diagnosis Note [id number] JUAN Barragan [address] [place] [address] 09/07/2024 14:21:19 10/01/2024 12:02:10 Pain of right knee joint 3625367151 64954 M25.201 [id number] JUAN Barragan [address] [place] [address] 10/30/2024 15:32:50 11/09/2024 11:05:17 Osteoarthritis of right knee joint 1062588215 46739 M17.11 Osteoarthr itis of left knee joint 1868921171 21496 M17.12 [id number] MD MILDRED Portillo [address] [place] [address] 12/05/2024 13:07:33 12/17/2024 09:12:27 Osteoarthritis of right knee joint 5878194371 07039 M17.11 Pain of hip region 74780 002 M25.551 Osteoarthr itis of right hip joint 2011498117 25904 M16.11 Health Concerns Section Related Observation LastModified by Organization Detai ls LastModified Time None Recorded Concern Status LastModified by Organization Details LastModified Time None Recorded Advance Directives Directive None Recorded Payers Insurance Date Sequence Insurance Name Policy Number Policy Cook Covered Member ID Cook Member ID Guarantor Name 12/17/2024 1 [place] (MEDICARE REPLACEMENT PPO) [id number] Jackeline Quiros [id number] Jackeline Quiros Notes Date Note Type Note Provider Name and Address Organization Details Recorded Time 09/07/2024 text/html I am seeing the patient today under the supervision of Dr. Rod who was available but who did not see the patient.History: This pleasant woman presents today for new problem of right knee pain. Pain is located anterior laterally about the knee. Mostly with bent knee activity specifically stairs getting up from a seated position as well as kneeling and squatting. She has had some therapy a does have a soft knee brace she wears and takes anti-inflammatories all without significant benefit.PMH/PSH/MEDS/A LL/FMH/SOC HX/ROS are reviewed in detail, updated and located in the patient's chart.General Exam: Vital signs are as noted belowMental status: Alert and lucid. Normal insight, affect and grooming.OFFICE AUDITOR: Gross motor coordination is intact. No spasticity or clonus noted.Extremities: [Calves are soft non tender, skin intact. ]Orthopedic Examination:Patient has a negative straight leg raise bilaterally.Right knee exam: Peripatellar tenderness. Crepitance with range of motion. Minimal effusion. No erythema or warmth. Mild joint line tenderness however negative Catrachita's test. No referred pain from the hip with range of motion of the hip.Left Knee: No tenderness to palpation. Full range of motion. Negative Catrachita's test. No effusion, erythema or warmth.Antalgic gait pattern favoring the right side.Peripheral, vascular, lymphatic examination, skin, neurological, coordination, reflexes, sensation are within normal limits.X-rays ordered, obtained and reivewed at [facility], 4 views of the right knee show advanced patellofemoral arthritis specifically lateral facet. MRI shows patellofemoral arthrosis. Mild medial compartment arthrosis no meniscal tearing.Assessment: Patellofemoral arthritis right kneePLAN:In regards to today's visit and in discussion of conservative treatment options. We have gone over Tylenol, use of anti-inflammatories, role of physical therapy, as well as intra-articular cortisone injections.After reviewing risks benefits and obtained verbal consent. The patient's right knee was injected with 1 cc of Kenalog 40 mg/cc, 4 cc of Marcaine and 1/4%. They tolerated this procedure well. We may repeat cortisone injections every 3 months.If at any point the patient wishes to further pursue total knee arthroplasty should call our office be seen by either myself or one of our total joint surgeons and further booked for total knee replacement.[employer] speech recognition apprentice electrician software was used to create portions of this document. An attempt at proofreading has been made to minimize errors. Please call for corrections. Alvarado Nicole PA-C [address] [facility] [address], [place], [address], [facility] - [facility] 09/07/2024 16:47:58 10/30/2024 text/html I am seeing the patient today under the supervision of Dr. Rod who was available but who did not see the patient.Dx: Bilateral knee arthritisInterval History: This pleasant woman presents today for recheck of bilateral knees. Cortisone injection at the last visit gave her minimal benefit. She has pain with standing walking getting up and down from a seated position her blood sugars went to the 600s. This is the point now where she wishes to pursue more definitive treatment. Modification to [place] was unable to walk any distances.Past Medical/Surgical History/Meds/Allergies reviewed and charted.Physical Exam:afebrile, vital signs stable, in no apparent distress, oriented to person/place/time.skin : intact, no erythema.Examination of each of the patient's knees reveals tenderness to palpation medially as well as at the borders of the patella. Crepitance with range of motion. Range of motion 0-1 20. No laxity.New Studies: DeferredImpression: Bilateral knee arthritis refractory to conservative treatmentPlan: 1. In regards to her knees at this point I discussed with her conservative treatment versus operative intervention at this point would recommend follow-up with Dr. Rod for consideration and booking of right total knee arthroplasty.[facility] speech recognition apprentice electrician software was used to create portions of this document. An attempt at proofreading has been made to minimize errors. Please call for corrections. Alvarado Nicole PA-C [address] [place] [address] [address], [place], [address], [facility] - [facility] 10/31/2024 07:30:47 OBGyn Episode No OBEpisode recorded.
--- OUTSIDE RECORDS SUMMARY | 2025-04-30 13:42 | XMS_ITS | Clinical Summary ---
Author Organization [facility] Address [address] [place] [address] Care Team Providers Care Cardiovascular Rn Name Role Phone Simon Lawrence MD Primary Care Provider [phone] Allergies Active Allergy Reactions Criticality Noted Date Comments Codeine Hydrocodone-Acetaminophen 09/26/2017 Latex Other (See Comments) Medium 03/31/2017 Morphine Other (See Comments) Medium 03/31/2017 Medications Medication Sig Dispensed Refills Start Date End Date Status insulin lispro (HumaLOG) injection 100 units/mL humalog 100 unit/ml soln 0 Active LANTUS 100 UNIT/ML injection 0 04/16/2018 Active sertraline (ZOLOFT) 100 MG tablet 0 04/26/2018 Active tiotropium (SPIRIVA) [address] 18 mcg into inhaler and inhale. 0 Active tiZANidine (ZANAFLEX) 2 MG tablet 0 05/22/2018 Active levothyroxine (SYNTHROID) tablet 50 mcg Take 1 tablet by mouth daily. 0 12/18/2018 Active atorvastatin (LIPITOR) tablet 20 mg Take 20 mg by mouth daily. for 30 days 0 11/21/2021 Active gabapentin (NEURONTIN) 600 MG tablet Take 600 mg by mouth 2 (two) times a day. 0 01/20/2022 Active lactulose (CHRONULAC) 10 GM/15ML solution Take 30 mL (20 g total) by mouth 2 (two) times a day as needed. 240 mL 0 02/04/2022 Active lithium (LITHOBID) 300 MG CR tablet Take 3 tablets (900 mg total) by mouth every night at bedtime. 0 10/14/2023 Active QUEtiapine (SEROquel) 25 MG tablet TAKE ONE TO TWO TABLETS BY MOUTH EVERY DAY AT NIGHT 0 08/25/2023 Active Active Problems Problem Noted Date Diagnosed Date Right shoulder injury, initial encounter 018 Complete tear of right rotator cuff 06/08/2018 Labral tear of shoulder, right, initial encounte r 06/08/2018 Family History Medical History Relation Name Comments Clotting disorder Father Cancer Mother Relation Name Status Comments Father Mother Social History Tobacco Use Types Packs/Day Years Used Date Smoking Tobacco: Every Day Cigarettes 0.2 Smokeless Tobacco: Never Tobacco Cessation:Ready to Q uit: Not Asked; Counseling Given: Not Answered Alcohol Use Standard Drinks/Week Comments Not Currently 0 (1 standard drink = 0.6 oz pur e alcohol) Sex and Gender Information Value Date Recorded Sex Assigned at Female 02/04/2022 1:13 PM EDT Gender Identity Not on file Sexual Orientation Not on file Job Start Date Occupation Industry Not on file Not on file Not on file Last Filed Vital Signs Vital Sign Reading Time Taken Comments Blood Pressure 138/85 04/12/2024 12:53 AM EDT Pulse 84 04/12/2024 4:07 AM EDT Temperature 36.6 C (97.9 F) 04/12/2024 12:53 AM EDT Respiratory Rate 18 04/12/2024 4:07 AM EDT Oxygen Saturation 90% 04/12/2024 4:07 AM EDT Inhaled Oxygen Concentration - - Weight 99.8 kg (220 lb) 04/12/2024 12:53 AM EDT Height 175.3 cm (5' 9 ) 04/12/2024 12:53 AM EDT Body Mass Index 32.49 04/12/2024 12:53 AM EDT Plan of Treatment Health Maintenance Due Date Last Done Comments Hepatitis C Screening 1959 COVID-19 Vaccine (#1) 1959 Pneumococcal Vaccine (1 of 2 - PCV) 1965 Pneumococcal Vaccine (1 of 2 - PCV) 1965 Depression Screening 1971 Preventative Health Evaluation 1977 DTap / Tdap / Td (1 - Tdap) 1978 Cervical Cancer Screening (P ap Smear) 1980 Colon Cancer Screening (Colonoscopy) 2004 Breast Cancer Screening (Mammogram) 2009 Shingrix-Zoster Vaccine (1 of 2) 2009 Fall Risk Assessment 2024 Osteoporosis Screening (DEXA Scan) 2024 Influenza Vaccine (#1) 2025 RSV Adult > 60+ Yrs or Pregn ant (1 - 1-dose 75+ series) 2034 Hepatitis B Vaccines Aged Out No long er eligible based on patient's age to complete this topic RSV Ped < 20 months Aged Out No longe r eligible based on patient's age to complete this topic Advance Directives For more information, please contact: [phone] Documents on File Type Date Recorded 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
--- OUTSIDE RECORDS SUMMARY | 2025-04-30 13:42 | XMS_ITS | Clinical Summary ---
Author Organization [facility] Address [address] [place] [address] Care Team Providers Care Can Washer Name Role Phone Simon Lawrence MD Primary Care Provider [phone] Allergies Active Allergy Reactions Criticality Noted Date Comments Codeine Unknown/Patient and Family Unable to Define Medium 03/31/2017 Latex Unknown/Patient and Family Unable to Define Medium 03/31/2017 Morphine Unknown/Patient and Family Unable to Define Medium 03/31/2017 Medications gabapentin (NEURONTIN) 600 MG tablet Take 600 mg by mouth 3 (three) times a day. 3 Active levothyroxine (SYNTHROID, LEVOTHROID) 50 MCG tablet Take 50 mcg by mouth daily. 3 Active lithium carbonate (LITHOBID) 300 MG 12 hr CR tablet Take 900 mg by mouth nightly. 3 Active PANTOprazole (PROTONIX) 40 MG EC tablet Take 40 mg by mouth. 3 Active aspirin enteric coated (ECOTRIN LOW STRENGTH) 81 MG EC tablet Take 81 mg by mouth. Active LORazepam (ATIVAN) 0.5 MG tablet TAKE ONE TABLET BY MOUTH THREE TIMES A DAY NEEDED DO NOT DRIVE 3 Active Multiple Vitamins-Minerals (Centrum Silver 50+Women) Tab Take by mouth. Active QUEtiapine (SEROquel) 25 MG tablet TAKE ONE TO TWO TABLETS BY MOUTH EVERY DAY AT NIGHT 3 Active tiotropium (SPIRIVA) [address] 18 mcg into inhaler and inhale. Active insulin lispro (HumaLOG) 100 units/mL injection humalog 100 unit/ml soln Active pancrelipase, Wkb-Qruo-Qler, (Creon) 59024-171789 units Cap DR Particles capsuleIndications :Pancreatic insufficiency Take 1 capsule (36,000 units of lipase total) by mouth 3 (three) times a day with meals. Dose is in units of lipase. 90 capsule 3 Active atorvastatin (LIPITOR) 20 MG tablet Take 20 mg by mouth daily. Active Mounjaro 5 MG/0.5ML pen-injector 4 Active dicyclomine (BENTYL) 10 MG capsuleIndications :LUQ pain Take 1 capsule (10 mg total) by mouth 3 (three) times a day as needed for cramping. 90 capsule 4 Active Active Problems No known active problems Family History Medical History Relation Name Comments Cancer, other Mother Rectal Cancer Colon cancer Mother Relation Name Status Comments Father Mother Social History Tobacco Use Types Packs/Day Years Used Date Smoking Tobacco: Every Day Cigarettes 0.5 50 Smokeless Tobacco: Never Tobacco Cessation:Ready to Q uit: Not Asked; Counseling Given: Not Answered Comments:Smokes 2 packs a week Alcohol Use Standard Drinks/Week Comments Not Currently 0 (1 standard drink = 0.6 oz pur e alcohol) Comments No Sex and Gender Information Value Date Recorded Sex Assigned at Not on file Legal Sex Female 10:42 AM EDT Gender Identity Not on file Sexual Orientation Not on file Last Filed Vital Signs Vital Sign Reading Time Taken Comments Blood Pressure 110/80 08/07/2024 1:19 PM EDT Pulse 97 08/07/2024 1:19 PM EDT Temperature 36.2 C (97.2 F) 09/28/2023 11:11 AM EST Respiratory Rate 16 09/28/2023 11:34 AM EST Oxygen Saturation 98% 09/28/2023 11:34 AM EST Inhaled Oxygen Concentration - - Weight 104 kg (230 lb) 08/07/2024 1:19 PM EDT Height 175.3 cm (5' 9 ) 08/07/2024 1:19 PM EDT Body Mass Index 33.97 08/07/2024 1:19 PM EDT Plan of Treatment Health Maintenance Due Date Last Done Comments HIV Screening 1972 DTaP/Tdap/Td Vaccines (1 - Tdap) 1978 Pneumococcal Vaccines 50+ (1 of 2 - PCV) 1978 Pap Smear (Ages 21-65) 1980 Mammogram 1999 Lung Cancer Screening (LDCT) 2009 Zoster (Shingles) Vaccine (1 of 2) 2009 RSV Vaccine 60 years and old er and Patients (1 - Risk 60-74 years 1-dose series) 2019 DXA Bone Density (Females,Ag es 65 and older) 2024 COVID-19 Vaccine ( - 2023-2 5 season) 2024 Influenza Vaccine 2025 07/09/2019 Colonoscopy 09/28/2033 09/28/2023 Hepatitis C Virus Screening Completed 08/15/2024 Hepatitis B Vaccines Aged Out No long er eligible based on patient's age to complete this topic Procedures Procedure Name Priority Date/Time Associated Diagnosis Comments HEPATITIS PANEL, ACUTE Routine 08/15/2024 1:26 PM EST Cirrhosis of liver without ascites, unspecified hepatic cirrhosis type (HCC) Elevated LFTs from Last 3 Months or Most Recently Relevant to Health Maintenance Results * Hepatitis Panel, Acute (08/15/2024 1:26 PM EST) Hepatitis A Antibody IgM NON-REACT JAY NON-REACT JAY [facility] Comment: For additional information, please refer to http://Fin[employer]/faq/WAB499 (This link is being provided for informational/ educational purposes only.) Hepatitis B Surface Ag Screen NON-REACT JAY NON-REACT JAY [facility] Comment: For additional information, please refer to http://[employer].tenfarms/faq/ADZ498 (This link is being provided for informational/ educational purposes only.) Hepatitis B Core Antibody IgM NON-REACT JAY NON-REACT JAY [facility] Comment: For additional information, please refer to http://Finover[employer]/faq/LAE915 (This link is being provided for informational/ educational purposes only.) Hepatitis C Antibody NON-REACT JAY NON-REACT JAY [facility] Comment: HCV antibody was non-reactive. There is no laboratory evidence of HCV infection. In most cases, no further action is required. However, if recent HCV exposure is suspected, a test for HCV RNA (test code 68321) is suggested. For additional information please refer to http://education.tenfarms/faq/CPH13h7 (This link is being provided for informational/ educational purposes only.) Blood Blood specimen / Unknown 08/15/2024 1:26 PM EST 08/15/2024 1:28 PM EST Narrative [facility] - 08/23/2024 1:11 PM EST FASTING:YES FASTING: YES us Lesa López APRN LAB BLOOD ORDERABLES Final Result [facility] [address] [place] [phone] from Last 3 Months or Most Recently Relevant to Health Maintenance [place] [id number] [employer] [place] [id number] [place] [phone] Care Teams Can Washer Relationship Specialty Start Date End Date Lawrence, Simon S, MD [address] [place] [address] PCP - General Internal Medicine 08/31/23
--- OUTSIDE RECORDS SUMMARY | 2025-04-30 13:42 | XMS_ITS | Clinical Summary ---
Author Organization [facility] Address [address] [place] [id number] Care Team Providers Care Home Health Care Worker Name Role Phone Simon Dougherty MD Primary Care Provider [phone] Allergies Active Allergy Reactions Criticality Noted Date Comments Acetaminophen-Codeine 06/30/2012 Codeine Rash,Unknown Medium 07/26/2016 Fentanyl Nausea And Vomiting 01/09/2019 Hydrocodone-Acetamino phen 08/30/2014 Other reaction(s): Rash/Dermatitis Latex, Natural Rubber Other (see comments),Rash,Unknow n Medium 07/26/2016 No reaction documented. Morphine Anaphylaxis,Other (see comments),Shortness of breath,Swelling,Unkno wn High 07/26/2016 Medications atorvastatin (LIPITOR) 20 mg tablet Take 20 mg by mouth in the morning. 2 Active aspirin 81 mg EC tablet Take 81 mg by mouth in the morning. Active albuterol HFA 90 mcg/actuation inhaler Inhale 2 puffs every 6 (six) hours as needed. 9 Active baclofen (LIORESAL) 10 mg tablet TAKE 1 TABLET BY MOUTH THREE TIMES A DAY FOR 30 DAYS 2 Active bisacodyL (DULCOLAX) 5 mg EC tablet as needed. 2 Active buPROPion XL (WELLBUTRIN XL) 300 mg 24 hr tablet Take 1 tablet by mouth nightly. 0 Active fluticasone propion-salmet Ruddy (ADVAIR DISKUS) 250-50 mcg/dose diskus inhaler Inhale 1 puff in the morning and 1 puff before bedtime. 9 Active gabapentin (NEURONTIN) 600 mg tablet Take 600 mg by mouth in the morning and 600 mg before bedtime. 2 Active insulin lispro (ADMELOG/HUMAL OG) 100 unit/mL injection INJECT SUBCUTANEOUSLY UP 24 UNITS BEFORE MEALS TWICE A DAY PER SLIDING SCALE 6 Active lactulose (CHRONULAC) 10 gram/15 mL solution Take 20 g by mouth as needed. 2 Active levothyroxine (SYNTHROID) 50 mcg tablet Take 1 tablet by mouth once daily. 9 Active Linzess 145 mcg capsule capsule Take 145 mcg by mouth Daily before breakfast. 2 Active LORazepam (ATIVAN) 0.5 mg tablet TAKE 1 TABLET BY MOUTH THREE TIMES A DAY NEEDED. DO NOT DRIVE 2 Active multivit with minerals/lutei n (MULTIVITAMIN 50 PLUS ORAL) Take 1 tablet by mouth in the morning. Active DULoxetine (CYMBALTA) 60 mg capsule Take 120 mg by mouth in the morning. 3 Active melatonin 10 mg tablet Take by mouth nightly. Active diazePAM (Valium) 5 mg tablet Take 1 tablet (5 mg total) by mouth every 6 (six) hours as needed for muscle spasms for up to 10 days. 30 tablet 3 Active methylPREDNISo lone (Medrol, Kael,) 4 mg tablet follow package directions 1 each 3 Active Additional Information Patient not taking.Reported on 03/14/2023 gabapentin (NEURONTIN) 300 mg capsule Take 300 mg by mouth. 3 Active pantoprazole (PROTONIX) 40 mg EC tablet Take 40 mg by mouth. 3 Active lithium (LITHOBID) 300 mg CR tablet Take 300 mg by mouth. 3 Active Active Problems Problem Noted Date Diagnosed Date Diplopia 10/15/2022 Cognitive decline 10/15/2022 Falling 10/15/2022 Family History Medical History Relation Comments No Known Problems Father No Known Problems Mother Relation Status Comments Father Mother Social History Tobacco Use Types Packs/Day Years Used Date Smoking Tobacco: Former Cigarettes Smokeless Tobacco: Never Tobacco Cessation:Counseling Given: Not Answered Alcohol Use Standard Drinks/Week Comments Not Currently 0 (1 standard drink = 0.6 oz pur e alcohol) Hunger Vital Sign Answer Date Recorded Within the past 12 months, y ou worried that your food would run out before you got the money to buy more. Never true 11/25/19 23 Within the past 12 months, t he food you bought just didn't last and you didn't have money to get more. Never true 11/25/2022 Comments No Sex and Gender Information Value Date Recorded Sex Assigned at Not on file Legal Sex Female 12:12 PM EDT Gender Identity Not on file Sexual Orientation Not on file Last Filed Vital Signs Vital Sign Reading Time Taken Comments Blood Pressure 109/57 11/27/2022 11:46 AM EST Pulse 96 11/27/2022 11:46 AM EST Temperature 36.6 C (97.9 F) 11/27/2022 11:46 AM EST Respiratory Rate 18 11/27/2022 11:46 AM EST Oxygen Saturation 95% 11/27/2022 11:46 AM EST Inhaled Oxygen Concentration - - Weight 98 kg (216 lb) 11/25/2022 6:10 AM EST Height 175.3 cm (5' 9 ) 11/03/2022 2:27 PM EST Body Mass Index 31.9 11/03/2022 2:27 PM EST Plan of Treatment Health Maintenance Due Date Last Done Comments Bone Density Screening 1959 Breast Cancer Screening 1959 CT Colonography 1959 Colonoscopy 1959 Colorectal Cancer Screening 1959 Diabetes: Hemoglobin A1C 1959 Diabetes: Urine Microalbumin 1959 FIT-DNA (Cologuard) 1959 FIT 1959 FOBT 1959 Flex Sigmoidoscopy - 5y 1959 HIV Screening 1959 DTaP,Tdap,and Td Vaccines (1 - Tdap) 1977 Diabetes: Retinopathy Screening 1977 Hepatitis C Screening 1977 Pneumococcal Vaccine, 50+ Ye ars (1 of 2 - PCV) 1978 Pap Smear 1980 Cervical Cancer Screening 1989 HPV/Cotest 1989 Zoster Vaccines (1 of 2) 2009 COVID-19 Vaccine ( - 2023-2 5 season) 2024 Influenza Vaccine (#1) 2025 HPV Vaccines Aged Out No longer eligi ble based on patient's age to complete this topic Hepatitis A Vaccines Aged Out No long er eligible based on patient's age to complete this topic MMR Vaccines Aged Out No longer eligi ble based on patient's age to complete this topic Meningococcal Vaccine Aged Out No sofi mara eligible based on patient's age to complete this topic Medical Devices Implanted Type Area Pad Machine Operator Device Identifier Shelf Expiration Date Model / Serial / Lot Peptide Enhanced Bone Graft I-Factor Putty, 5.0 Cc Syringe - [id number] Implanted:Qty : 1 on 11/25/2022 by Álvaro Ramírez MD at [facility] Bone Graft Substitute Spine Lumbar [employer] 05/09/2025 [id number] / / [id number] 12mm X 36 Mm Telix K Spinal Cage, 5-Degree, Ti - [id number] Implanted:Qty : 2 on 11/25/2022 by Álvaro Ramírez MD at [facility] Ortho - Spinal Implant N/A: Spine Lumbar [employer] [id number] / / 6.5mm X 45mm [place] Sacroiliac Screw - [id number] Implanted:Qty : 6 on 11/25/2022 at [facility] Ortho Screw Spine Lumbar Soila Spine [id number] / / [place] Set Screw - [id number] Implanted:Qty : 6 on 11/25/2022 at [facility] Ortho Screw Spine Lumbar [place] Spine [id number] 1 / / 5.5mm X 65mm Hart Spinal Reynaldo, Contoured - [id number] Implanted:Qty : 2 on 11/25/2022 by Álvaro Ramírez MD at [facility] N/A: Spine Lumbar Soila Spine [id number] / / Insurance MEDICARE PART A & B Advance Directives For more information, please contact: [phone] * Full Code (Latest Code Status on File) Date Activated Date Inactivated Comments 11/25/2022 12:54 PM 11/27/2022 3:28 PM Care Teams Home Health Care Worker Relationship Specialty Start Date End Date Simon Dougherty MD [address] [phone] PCP - General Internal Medicine 09/06/22
--- OUTSIDE RECORDS SUMMARY | 2025-04-30 13:42 | XMS_ITS | Continuity of Care Document ---
Author Organization [facility] [address] [place] [address] Phone [phone] Social History Type Date Description Comments Sex Female Sex Unknown Medical Devices Description No Information Available Encounters Description No Information Available Assessments Description No Information Available Plan of Treatment No Information Available Functional Status Description No Information Available Mental Status Description No Information Available Referrals Description No Information Available
--- OUTSIDE RECORDS SUMMARY | 2025-04-30 13:42 | XMS_ITS | Clinical Summary ---
Author Organization [facility] [address] [facility] Address [address] [place] [address] Phone Care Team Providers Care Social Scientist Name Role Phone Simon Dougherty MD Primary Care Provider [phone] Allergies Active Allergy Reactions Criticality Noted Date [...] Overview (11/16/2024): Follows with Soheila Babb in [place] therapist. Chronic pain syndrome 09/26/2017 Overview (11/16/2024): Last surgery 11/2016Cervical fusion COPD (chronic obstructive pu lmonary disease) ([facility] V24, [facility] V28) 09/26/2017 Obesity (BMI 30-39.9) 09/26/2017 Type 2 diabetes mellitus wit h peripheral neuropathy ([facility] V24, [facility] V28) 09/26/2017 Overview (11/16/2024): S/p carpal tunnel release Asthma 11/13/2015 Colon polyp 05/26/2015 Diverticulosis 05/16/2015 Gastritis 05/16/2015 Internal hemorrhoids 05/16/2015 Hyperlipidemia 08/30/2014 Bipolar 1 disorder ([facility] V24, [facility] V28) Fatty liver 08/08/2013 Vitamin D deficiency 04/05/2013 GERD (gastroesophageal reflux disease) 3 Urge and stress incontinence 03/02/2013 Obstructive sleep apnea 02/21/2013 Ulcer of esophagus without bleeding 02/02/2013 Nephrolithiasis 12/18/2012 Restless legs syndrome 11/22/2012 Encounters Date Type Department Care Team Description 02/18/2025 12:07 AM EDT - 02/18/2025 2:24 AM EDT Emergency [facility] Emergency [address] [place] [address] Patric Mukherjee MD Chest pain, unspecified type (Primary Dx) Discharge Disposition: Home or Self Care from Last 3 Months Surgical History Surgery Date Site/Laterality Comments NECK SURGERY PROCEDURE:NECK SURGERY HAND SURGERY PROCEDURE:HAND SURGERY SHOULDER SURGERY PROCEDURE:SHOULDER SURGERY BACK SURGERY PROCEDURE:BACK SURGERY Medical History Medical History Date Comments COPD (chronic obstructive pu lmonary disease) ([facility] V24, [facility] V28) DX:COPD (chronic o bstructive pulmonary disease) ([facility]) Diabetes mellitus ([facility] V 24, [facility] V28) DX:Diabetes mellitus (HCC) Family History Medical [...] 64 02/18/2025 2:03 AM EDT Temperature 36.7 C (98.1 F) 02/18/2025 12:14 AM EDT Respiratory Rate 20 02/18/2025 2:03 AM EDT [...] Years (1 of 2 - PCV) 1978 Cervical Cancer Screening: Pap Smear 1980 Zoster Vaccines (1 of 2) 2009 RSV Immunization Adult Patients (1 - Risk 60-74 years 1-dose series) 2019 Hepatitis C Screening 09/18/2022 Lung Cancer Screening [...] 2024 Cholesterol Screening (Lipid Panel) 06/20/2024 06/20/2019 Depression Screening 10/10/2024 Influenza Vaccine (#1) 2025 09/17/2022, 2018 Diabetes: Annual GFR (Glomerular Filtration Rate) 02/18/2026 [...] 02/18/2025 1:21 AM EDT Patric Mukherjee MD 02/18/2025 2:28 AM ECG Rhythm Interpretation and Report Date/Time: 02/18/2025 1:21 AM Performed by: Patric Mukherjee MD Authorized by: Patric Mukherjee MD ECG interpreted by ED Physician in the absence of a sanitarian inspector: yes Previous ECG: Previous ECG: Compared to current Similarity: No change Interpretation: Interpretation: normal Details: NSR with a rate of 91 bpm. Normal VA, QRS, QTc, and axis. No acute ischemic changes. us Patric Mukherjee MD ECG ORDERABLES Final Result * Troponin I high sensitivity (02/18/2025 1:21 AM EDT) Only the most recent of2 resultswithin the time period is included. [facility] High Sensitivity Troponin I 2 0 - 14 ng/L LAB CHEMISTRY METHOD 02/18/2025 1:54 AM EDT [facility] Blood Venous blood specimen / Unknown Venipuncture / Unknown 02/18/2025 1:21 AM EDT 02/18/2025 1:23 AM EDT [facility] - 02/18/2025 1:54 AM EDT HSTnI results stratify to HIGH RISK category if any value >100 ng/L or delta at 1 hour is greater than or equal to 15 ng/L (male and female). Note: Delta values are not applicable if symptoms began more than 12 hours pre-arrival. Risk stratification should include the calculation of the HEART score. Testing performed using [employer] Access AccuTnI+3 Assay. us Patric Mukherjee MD LAB BLOOD ORDERABLES Final Res ult Performing Organization Address [facility] Co de Phone Number [facility] ([facility]) [facility] [address] [place] [address], [place] [phone] * 12-Lead ECG (02/18/2025 1:15 AM EDT) Only the most recent of2 resultswithin the time period is included. Ventricular Rate ECG 66 BPM GEMUSE Atrial Rate 66 BPM GEMUSE P-R Interval 170 ms GEMUSE QRS Duration 114 ms GEMUSE Q-T Interval 418 ms GEMUSE QTc 438 ms GEMUSE P Wave [place] 13 degrees GEMUSE R [place] -3 degrees GEMUSE T [place] -7 degrees GEMUSE ECG Interpretation Normal sinus rhythm Incomplete right bundle branch block Nonspecific T wave abnormality Abnormal ECG When compared with ECG of 18-FEB-2025 00:09, (Unconfirmed) No significant change was found Confirmed by Luis F Ayon ([id number]) on 02/18/2025 2:02:53 PM GEMUSE 02/18/2025 1:15 AM EDT 02/18/2025 2:02 PM EDT us Patric Mukherjee MD ECG ORDERABLES Final Result Performing Organization Address [facility] Co de Phone Number GEMUSE * XR Chest 1 View (02/18/2025 12:29 AM EDT) Anatomical Region Laterality Modality Body Radiographic Yolande ging 02/18/2025 12:4 5 AM EDT Impressions 02/18/2025 12:47 AM EDT FINDINGS/IMPRESSION: Thoracic inlet is excluded. Lungs are clear. Heart is normal in size. Report reviewed and signed by : Dr. Chacho Gunderson on 02/18/2025 12:47 AM. Workstation Name - [id number] -------- FINAL REPORT -------- Dictated By: Chacho Gunderson Dictated Date: 02/18/2025 00:45 ET Assigned Physician: Chacho Gunderson Reviewed and Electronically Signed By: Chacho Gunderson Signed Date: 02/18/2025 00:47 ET Workstation ID: [id number] Transcribed By: Self Edit Transcribed Date: 02/18/2025 00:45 ET Narrative 02/18/2025 12:47 AM EDT XR CHEST 1 VIEW HISTORY:64 years Female chest pain COMPARISON:None Procedure Note Chacho Gunderson MD - 02/18/2025 XR CHEST 1 VIEW HISTORY:64 years Female chest pain COMPARISON:None IMPRESSION: FINDINGS/IMPRESSION: Thoracic inlet is excluded. Lungs are clear. Heart is normal in size. Report reviewed and signed by : Dr. Chacho Gunderson on 02/18/2025 12:47 AM.Workstation Name - [id number] -------- FINAL REPORT -------- Dictated By: Chacho Gunderson Dictated Date: 02/18/2025 00:45 ET Assigned Physician: Chacho Gunderson Reviewed and Electronically Signed By: Chacho Gunderson Signed Date: 02/18/2025 00:47 ET Workstation ID: [id number] Transcribed By: Self Edit Transcribed Date: 02/18/2025 00:45 ET Patric Mukherjee MD IMG XR PROCEDURES Final Result * (ABNORMAL) CBC auto differential (02/18/2025 12:19 AM EDT) [facility] WBC 8.8 4.0 - 10.5 K/[facility] LAB HEMETOLOGY METHOD 02/18/2025 12:25 AM EDT [facility] RBC 4.61 4.20 - 5.40 M/mcL LAB HEMETOLOGY METHOD 02/18/2025 12:25 AM EDT [facility] Hemoglobin 14.2 12.5 - 16.0 g/dL LAB HEMETOLOGY METHOD 02/18/2025 12:25 AM EDT [facility] Hematocrit 42.2 37.0 - 47.0 % LAB HEMETOLOGY METHOD 02/18/2025 12:25 AM EDT [facility] MCV 91.5 78.0 - 100.0 FL LAB HEMETOLOGY METHOD 02/18/2025 12:25 AM [facility] MCH 30.8 25.0 - 33.0 pcg LAB HEMETOLOGY METHOD 02/18/2025 12:25 AM [facility] MCHC 33.6 32.0 - 36.0 g/dL LAB HEMETOLOGY METHOD 02/18/2025 12:25 AM [facility] RDW 11.7(L) 12.1 - 16.2 % LAB HEMETOLOGY METHOD 02/18/2025 12:25 AM [facility] Platelets 197 150 - 450 K/mcL LAB HEMETOLOGY METHOD 02/18/2025 12:25 AM [facility] MPV 10.0 7.4 - 11.4 FL LAB HEMETOLOGY METHOD 02/18/2025 12:25 AM [facility] Neutrophils Relative 48.5 44.0 - 74.0 % LAB HEMETOLOGY METHOD 02/18/2025 12:25 AM [facility] Lymphocytes Relative 44.1 20.0 - 48.0 % LAB HEMETOLOGY METHOD 02/18/2025 12:25 AM [facility] Monocytes Relative 7.1 2.0 - 12.0 % LAB HEMETOLOGY METHOD 02/18/2025 12:25 AM [facility] Eosinophils Relative 0.0 0.0 - 6.0 % LAB HEMETOLOGY METHOD 02/18/2025 12:25 AM [facility] Basophils Relative 0.1 0.0 - 2.0 % LAB HEMETOLOGY METHOD 02/18/2025 12:25 AM [facility] Neutrophils Absolute 4.26 1.80 - 7.80 K/mcL LAB HEMETOLOGY METHOD 02/18/2025 12:25 AM EDT [facility] Lymphocytes Absolute 3.87(H) 1.00 - 3.20 K/mcL LAB HEMETOLOGY METHOD 02/18/2025 12:25 AM EDT [facility] Monocytes Absolute 0.62 0.00 - 0.80 K/mcL LAB HEMETOLOGY METHOD 02/18/2025 12:25 AM EDT [facility] Eosinophils Absolute <0.03 0.00 - 0.50 K/[facility] LAB HEMETOLOGY METHOD 02/18/2025 12:25 AM EDT [facility] Basophils Absolute <0.03 0.00 - 0.20 K/mcL LAB HEMETOLOGY METHOD 02/18/2025 12:25 AM EDT [facility] Blood Venous blood specimen / Unknown Venipuncture / Unknown 02/18/2025 12:19 AM EDT 02/18/2025 12:23 AM EDT us Patric Mukherjee MD LAB BLOOD ORDERABLES Final Res ult [facility] [address] [place] [address], [place] [phone] * D-Dimer (Quantitative) (02/18/2025 12:19 AM EDT) D-Dimer, Quant (D-DU) 186 <231 ng/mL DDU LAB COAGULATION METHOD 02/18/2025 12:35 AM EDT [facility] Blood Venous blood specimen / Unknown Venipuncture / Unknown 02/18/2025 12:19 AM EDT 02/18/2025 12:23 AM EDT Narrative [facility] - 02/18/2025 12:35 AM EDT This assay has been approved by the Food and Drug Administration (FDA) for use in excluding low and moderate risk patients suspected of venous thromboembolism, including deep vein thrombosis (DVT) and pulmonary embolism (PE) when used in conjunction with a clinical Pre test Probability model such as Wells, et al. The D Dimer result should not be used alone to rule in DVT and or PE. Patric Mukherjee MD LAB BLOOD ORDERABLES Final Res ult [facility] [address] [place] [address], [place] [phone] * (ABNORMAL) Comprehensive Metabolic Panel (CMP) (02/18/2025 12:19 AM EDT) [facility] Signature Sodium 139 135 - 145 mmol/L LAB CHEMISTRY METHOD 02/18/2025 12:47 AM [facility] Potassium 3.9 3.5 - 5.1 mmol/L LAB CHEMISTRY METHOD 02/18/2025 12:47 AM [facility] Chloride 102 98 - 107 mmol/L LAB CHEMISTRY METHOD 02/18/2025 12:47 AM [facility] CO2 31 24 - 32 mmol/L LAB CHEMISTRY METHOD 02/18/2025 12:47 AM [facility] Anion Gap 6 5 - 14 LAB CHEMISTRY METHOD 02/18/2025 12:47 AM [facility] Glucose 126 70 - 199 mg/dL LAB CHEMISTRY METHOD 02/18/2025 12:47 AM [facility] BUN 14 7 - 17 mg/dL LAB CHEMISTRY METHOD 02/18/2025 12:47 AM [facility] Creatinine 0.65 0.50 - 1.00 mg/dL LAB CHEMISTRY METHOD 02/18/2025 12:47 AM [facility] eGFR 98 >=60 mL/min/1. 73m2 LAB CHEMISTRY METHOD 02/18/2025 12:47 AM [facility] Comment:Calculation based on the Chronic Kidney Disease Epidemiology Collaboration (CKD-EPI) equation refit without adjustment for race. BUN/Creatinine Ratio 21.5(H) 12.0 - 20.0 LAB CHEMISTRY METHOD 02/18/2025 12:47 AM [facility] Calcium 9.5 8.4 - 10.2 mg/dL LAB CHEMISTRY METHOD 02/18/2025 12:47 AM [facility] AST (SGOT) 27 5 - 40 unit/L LAB CHEMISTRY METHOD 02/18/2025 12:47 AM [facility] ALT (SGPT) 27 7 - 52 unit/L LAB CHEMISTRY METHOD 02/18/2025 12:47 AM [facility] Alkaline Phosphatase 93 34 - 104 unit/L LAB CHEMISTRY METHOD 02/18/2025 12:47 AM [facility] Total Protein 7.0 6.4 - 8.5 g/dL LAB CHEMISTRY METHOD 02/18/2025 12:47 AM [facility] Albumin 4.2 3.5 - 5.0 g/dL LAB CHEMISTRY METHOD 02/18/2025 12:47 AM [facility] Total Bilirubin 1.3(H) 0.3 - 1.0 mg/dL LAB CHEMISTRY METHOD 02/18/2025 12:47 AM [facility] Blood Venous blood specimen / Unknown Venipuncture / Unknown 02/18/2025 12:19 AM EDT 02/18/2025 12:23 AM EDT us Patric Mukherjee MD LAB BLOOD ORDERABLES Final Res ult [facility] [address] [place] [address], [place] [phone] * External Colonoscopy Report (09/28/2023) Anatomical Region Laterality Modality Endoscopy Provider [place] [facility] GI~PROCEDURE ORDERABLES Final Result * (ABNORMAL) [...] mg/dL Blood Venous blood specimen / Unknown Result [facility] Provider LAB BLOOD ORDERABLES Bridgette l Result * HM Urine Albumin Creatinine Ratio (03/08/2019) HM Urine Albumin Creatinine Ratio abstracted Result [facility] Historical Provider HEALTH MAINTENANCE Final Result from Last 3 Months or Most Recently Relevant to Health Maintenance Insurance [employer] - [place] MEDICARE ADVANTAGE Care Teams Social Scientist Relationship Specialty Start Date End Date Simon Dougherty MD [address] [place] [id number] PCP - General 08/26/23
== END 2025-04-30 12:58 | disposition home or self-care (01) ==
LOC: HO.HOS 12:40
PROVIDERS: PCP Internal Medicine; Visit Provider Orthopaedic Surgery
DX: M25.561 Pain in right knee (principal)
CPT/HCPCS: 99024

== ENCOUNTER → 2025-04-30 12:40 | Outpatient (BNVA) | payer MEDICARE, SELFPAY | PROVIDERS: PCP Internal Medicine; Visit Provider Orthopaedic Surgery | DX: M25.561 Pain in right knee (principal) | CPT/HCPCS: 99212 ==